=== PATIENT | male | born 1940 | race Caucasian/White ===

== ENCOUNTER 2017-01-29 16:59 | Emergency (ER) | payer MEDICARE ==
--- NOTE | 2017-01-29 17:52 | C.PDOC ---
History Of Present Illness <TanikayukiStaceyEwa C - Last Filed: 01/29/17 19:01> <Mac Pulliam - Last Filed: 01/29/17 20:25> 76 yr old male presents to the ER with complaints of feeling dizzy for the past 3 days when he was at mosque. Patient also reports of feeling SOB, tired and shivering today. Patient denies recent illness, chest pain, vision changes, nausea, vomiting, weakness or numbness. (Ewa Avina) History Per: Patient History/Exam Limitations: no limitations Onset/Duration Of Symptoms: Days (3) Current Symptoms Are (Timing): Still Present <RuthleonorStaceyEwa C - Last Filed: 01/29/17 19:01> <Mac Pulliam - Last Filed: 01/29/17 20:25> Time Seen by Provider: 01/29/17 17:30 Chief Complaint (Nursing): Dizziness/Lightheaded Past Medical History Reviewed: Historical Data, Nursing Documentation, Vital Signs - Medical History PMH: Cardia Arrhythmia, HTN, Hypercholesterolemia Family History: States: No Known Family Hx - Social History Hx Alcohol Use: Yes (''occassionally'') Hx Substance Use: No - Immunization History Hx Tetanus Toxoid Vaccination: No Hx Influenza Vaccination: Yes (2015) Hx Pneumococcal Vaccination: Yes (2015) <TanikayukiStaceyEwa C - Last Filed: 01/29/17 19:01> Review Of Systems Except As Marked, All Systems Reviewed And Found Negative. Constitutional: Positive for: Other ((+) Tired. Shivering ). Negative for: Fever Eyes: Negative for: Vision Change Cardiovascular: Negative for: Chest Pain Respiratory: Positive for: Shortness of Breath Gastrointestinal: Negative for: Nausea, Vomiting Neurological: Negative for: Weakness, Numbness <Ewa Avina - Last Filed: 01/29/17 19:01> Physical Exam - Physical Exam Appears: Non-toxic, No Acute Distress, Other ((+) Diaphoretic) Skin: Warm, Dry Head: Atraumatic, Normacephalic Eye(s): bilateral: Normal Inspection, PERRL, EOMI Oral Mucosa: Moist Neck: Normal ROM, Supple Chest: Symmetrical, No Tenderness Cardiovascular: Rhythm Regular, No Friction Rub, No Murmur Respiratory: Normal Breath Sounds, No Rales, No Rhonchi, No Wheezing Extremity: Normal ROM, No Swelling Pulses: Left Dorsalis Pedis: Normal, Right Dorsalis Pedis: Normal Neurological/Psych: Oriented x3, Normal Speech, Normal Motor <Ewa Avina - Last Filed: 01/29/17 19:01> ED Course And Treatment - Laboratory Results Result Diagrams: 01/29/17 18:30 ECG: Interpreted By Me, Viewed By Me ECG Rhythm: Sinus Rhythm ECG Interpretation: Normal Rate From EC (BPM) O2 Sat by Pulse Oximetry: 95 (RA ) Pulse Ox Interpretation: Normal - Radiology CXR: Viewed By Me, Read By Radiologist CXR Interpretation: Yes: No Acute Disease <Ewa Avina - Last Filed: 01/29/17 19:01> - Laboratory Results Result Diagrams: 01/29/17 18:30 01/29/17 18:30 <Mac Pulliam - Last Filed: 01/29/17 20:25> Medical Decision Making <Ewa Avina - Last Filed: 01/29/17 19:01> <Mac Pulliam - Last Filed: 01/29/17 20:25> Medical Decision Making: PLAN: * CXR * EKG * Troponin * CBC * CMP Patient states that he feels anxious and gets anxious if he does not take his medications. (wEa Avina) Upon provider reevaluation patient is feeling better, is medically stable, and requires no further treatment in the ED at this time. Patient will be discharged home with Rx for ativan . Counseling was provided and all questions were answered regarding diagnosis and need for follow up with Dr burnett. There is agreement to discharge plan. Return if symptoms persist or worsen. (Mac Pulliam) Disposition - Disposition Disposition Time: 19:02 <Ewa Avina - Last Filed: 01/29/17 19:01> Counseled Patient/Family Regarding: Studies Performed, Diagnosis, Need For Followup, Rx Given <Mac Pulliam - Last Filed: 01/29/17 20:25> - Disposition Referrals: Johann Burnett MD [Staff Provider] - Disposition: HOME/ ROUTINE Condition: FAIR Additional Instructions: Please return if symptoms recur Prescriptions: Lorazepam [Ativan] 0.5 mg PO TID PRN #15 tab PRN Reason: Anxiety Instructions: Anxiety (ED) - Clinical Impression Clinical Impression: Anxiety - PA / [employer] / Resident Statement MD/DO has reviewed & agrees with the documentation as recorded. - Scribe Statement The provider has reviewed the documentation as recorded by the Scribe <Ewa Avina - Last Filed: 01/29/17 19:01> <Mac Pulliam - Last Filed: 01/29/17 20:25> - Scribe Statement Alyssa Hendrix All medical record entries made by the Scribe were at my direction and personally dictated by me. I have reviewed the chart and agree that the record accurately reflects my personal performance of the history, physical exam, medical decision making, and the department course for this patient. I have also personally directed, reviewed, and agree with the discharge instructions and disposition. (Ewa Avina) Physician Patient Turnover Patient Signed Over To: Mac Pulliam Handoff Comments: Pending lab work and disposition <Ewa Avina - Last Filed: 01/29/17 19:01>
[2017-01-29] MEDS ORDERED: Nitroglycerin 2% Ointment Foilpak UD TOP STA (18:08)
[2017-01-29 18:34] VITALS: PULSE 87
[2017-01-29 18:35] LABS: BASO % 0.6 % (0.0-2.0); EOS % 0.4 % (0.0-4.0); HEMATOCRIT 42.1 % (35.0-51.0); LYMPH # 1.3 K/uL (1.0-4.3); LYMPH % 16.3 % (20.0-40.0); MEAN CELL VOLUME 89.5 fL (80.0-94.0); MEAN CORPUSCULAR HGB CONC 33.6 g/dL (33.0-37.0); MEAN PLATELET VOLUME 6.7 fL (7.2-11.7); MONO # 0.5 K/uL (0.0-0.8); MONO % 6.9 % (0.0-10.0); RED CELL DISTRIBUTION WIDTH 13.3 % (11.5-14.5); WHITE BLOOD COUNT 7.9 K/uL (4.8-10.8)
--- NOTE | 2017-01-29 18:37 | RAD ---
PROCEDURE: CHEST RADIOGRAPH, 1 VIEW HISTORY: chest pain COMPARISON: None available. FINDINGS: LUNGS: Clear. PLEURA: No pneumothorax or pleural fluid seen. CARDIOVASCULAR: Normal. OSSEOUS STRUCTURES: No significant abnormalities. VISUALIZED UPPER ABDOMEN: Normal. OTHER FINDINGS: None. IMPRESSION: No active disease.
[2017-01-29 19:01] LABS: CHLORIDE 98 mmol/L (98-107); SODIUM 138 mmol/L (132-148)
[2017-01-29 19:04] LABS: ALB/GLOB RATIO 1.1 (1.0-2.1); ALKALINE PHOSPHATASE 92 U/L (38-126); ALT/SGPT 23 U/L (21-72); AST/SGOT 35 U/L (17-59); BILIRUBIN,TOTAL 0.7 mg/dL (0.2-1.3); BLOOD UREA NITROGEN 22 mg/dL (9-20); CALCIUM 9.5 mg/dl (8.6-10.4); CARBON DIOXIDE 27 mmol/L (22-30); GFR AFRICAN-AMERICAN 55; GLUCOSE,RANDOM 130 mg/dL (75-110); TOTAL PROTEIN 8.8 g/dL (6.3-8.3)
[2017-01-29 19:19] LABS: POTASSIUM 3.5 mmol/L (3.6-5.2)
[2017-01-29 20:37] VITALS: BP 144/71; RESP 22; TEMP 98.2; O2SAT 96
--- NOTE | 2017-01-30 11:30 | CARD ---
APPROVED REPORT EKG Measurement Heart [id number] <Conclusion> Normal sinus rhythm Possible Left atrial enlargement Borderline ECG
== END 2017-01-29 20:38 | disposition home or self-care (01) ==
LOC: MERGE 16:59 → C.ER 16:59
DX: F41.9 Anxiety disorder, unspecified (principal); I10 Essential (primary) hypertension; E78.00 Pure hypercholesterolemia, unspecified; I49.9 Cardiac arrhythmia, unspecified; Z87.891 Personal history of nicotine dependence

== ENCOUNTER 2018-01-13 07:07 | Day surgery (SDC) | payer MEDICARE, OTHER ==
[2018-01-08 10:28] VITALS: BMI 22.4
[2018-01-13] MEDS ORDERED: Lidocaine 2% Jelly (Uro-Jet) ONE (08:15)
[2018-01-13] MEDS ORDERED: cefTRIAXone IV 1 gm in Dextros 50 ML IVPB ONE (08:15)
[2018-01-13] MEDS ORDERED: Gentamicin 160 MG in Sodium Chloride 0.9% 100 ML IVPB ONE (08:19)
[2018-01-13] MEDS ORDERED: Midazolam 2 MG/2 ML VIAL ONE (08:38)
[2018-01-13] MEDS ORDERED: Propofol 10 mg/ml Inj (20 ML) ONE (08:38)
[2018-01-13] MEDS ORDERED: Lactated Ringer's 1,000 ML IV ONE (09:12)
[2018-01-13 11:18] VITALS: BP 123/59; PULSE 73; RESP 15; TEMP 97.7; O2SAT 97
--- NOTE | 2018-01-13 20:41 | OP ---
PROCEDURE DATE: 01/13/2018 PREOPERATIVE DIAGNOSIS: Elevated prostate specific antigen of 23.04. POSTOPERATIVE DIAGNOSIS: Elevated prostate specific antigen of 23.04. PROCEDURE: Transrectal ultrasound, diagnostic, transrectal ultrasound guided prostatic biopsy. SURGEON: Ryan Lewis MD. DESCRIPTION OF PROCEDURE: The patient is interviewed in the holding area and confirmed that he is not taking any aspirin or NSAIDs for over 10 days. He was told that in the unlikely event he gets high fever or chills, he is to call my office immediately and/or go to the emergency room. The patient was brought into the operating room, placed in the lithotomy position, prepped and draped in the usual fashion. He was medicated with 1 gm of Rocephin IV piggyback and then gentamicin 160 mg IV piggyback. The rectum was cleansed with Betadine. He was placed under anesthesia. Transrectal ultrasound diagnostically was performed that revealed a 37.7 cm prostate. There were multiple areas of calcification noted but no hypoechoic lesions were seen. It should be mentioned that digital rectal exam had been performed prior to introduction of the transducer and the prostate was smooth and symmetrical without any obvious nodules and there were no areas of nodularity. We now proceeded with prostatic biopsy. The prostate was divided into six sextants and two cores were taken from each sextant. Afterwards, the transducer was maintained in place for 5 minutes to promote hemostasis and upon removal no bleeding was noted. The patient tolerated the procedure well. Ryan Lewis MD
== END 2018-01-13 11:33 | disposition home or self-care (01) ==
LOC: C.SDS 07:07 → C.OPSURG 07:07 → C.SDS 11:33
PROVIDERS: ATTEND Urology
DX: R97.20 Elevated prostate specific antigen [PSA] (principal)
CPT/HCPCS: 55700; 82948; 88305; 88342; J0696; J1580; J7120

== ENCOUNTER 2018-08-17 06:52 | Inpatient (IN) | payer OTHER ==
[2018-08-17 06:52] VITALS: BMI 22.4
[2018-08-17 07:36] LABS: ABG ALLEN TEST POS; ARTERIAL BLOOD GAS HCO3 19.1 mmol/L (21-28); ARTERIAL BLOOD GAS O2 SAT 98.9 % (95-98); ARTERIAL BLOOD GAS PCO2 27 mm/Hg (35-45); ARTERIAL BLOOD GAS PH 7.38 (7.35-7.45); ARTERIAL BLOOD GAS PO2 320 mm/Hg (80-100); ARTERIAL BLOOD GAS TCO2 16.8 mmol/L (22-28)
[2018-08-17 07:41] LABS: BASO % 0.2 % (0.0-2.0); EOS % 0.1 % (0.0-4.0); LYMPH # 0.5 K/uL (1.0-4.3); LYMPH % 6.2 % (20.0-40.0); MEAN CORPUSCULAR HEMOGLOBIN 31.5 pg (27.0-31.0); MEAN CORPUSCULAR HGB CONC 32.8 g/dL (33.0-37.0); MEAN PLATELET VOLUME 8.9 fL (7.2-11.7); MONO # 0.4 K/uL (0.0-0.8); MONO % 4.7 % (0.0-10.0); NEUT # 7.4 K/uL (1.8-7.0); NEUT % 88.8 % (50.0-75.0); RBC 3.41 Mil/uL (4.40-5.90); RED CELL DISTRIBUTION WIDTH 14.3 % (11.5-14.5); WHITE BLOOD COUNT 8.3 K/uL (4.8-10.8)
[2018-08-17 07:44] LABS: HEMOGLOBIN 10.8 g/dL (12.0-18.0); MEAN CELL VOLUME 96.3 fL (80.0-94.0); PLATELET COUNT 162 K/uL (130-400)
[2018-08-17 07:55] LABS: INR 0.9; PROTHROMBIN TIME 10.2 SECONDS (9.7-12.2)
--- NOTE | 2018-08-17 07:55 | C.PDOC ---
History Of Present Illness 77 year old male with a medical history of prostate cancer and renal insufficiency presents to the ED via EMS with a chief complaint of shortness of breath and cough for 1 day. The patient reports his last radiation therapy was August 11, 5 days ago he developed cough and chills for which he took Mucinex. Today he went into respiratory distress, EMS administered Duoneb prior to arrival. The patient denies chest pain, abdominal pain, and any other associated symptoms. Chief Complaint (Nursing): Respiratory Distress History Per: Patient, EMS History/Exam Limitations: no limitations Onset/Duration Of Symptoms: Days (x5) Current Symptoms Are (Timing): Still Present Associated Symptoms: Chills Recent travel outside of the [place]: No Past Medical History Reviewed: Historical Data, Nursing Documentation, Vital Signs Vital Signs: Last Vital Signs Temp 98.3 F 08/17/18 06:59 Pulse 122 H 08/17/18 07:14 Resp 45 H 08/17/18 07:08 BP 151/68 H 08/17/18 06:59 Pulse Ox 98 08/17/18 07:08 - Medical History PMH: Arthritis, Cardia Arrhythmia, HTN, Hypercholesterolemia, Chronic Kidney Disease (left kidney 50 percent functioning only per pt) Family History: States: Unknown Family Hx - Social History Hx Alcohol Use: Yes (''occassionally'') Hx Substance Use: No - Immunization History Hx Tetanus Toxoid Vaccination: No Hx Influenza Vaccination: Yes (2016) Hx Pneumococcal Vaccination: Yes (2016) Review Of Systems Except As Marked, All Systems Reviewed And Found Negative. Constitutional: Positive for: Chills. Negative for: Fever Respiratory: Positive for: Cough, Shortness of Breath Physical Exam - Physical Exam Appears: Other (moderate distress. ) Skin: Warm, Dry Head: Atraumatic, Normacephalic, Other (facial edema. ) Eye(s): bilateral: Normal Inspection Oral Mucosa: Moist Neck: Normal ROM, Supple Chest: Symmetrical, No Deformity Cardiovascular: Rhythm Regular, No Murmur Respiratory: Normal Breath Sounds, Rales (bilaterally. ), No Rhonchi, No Wheezing, Other ((+) tachycardic. (+) moderate respiratory distress.) Gastrointestinal/Abdominal: Normal Exam, Soft, No Tenderness Extremity: Bilateral: Atraumatic, Normal Color And Temperature, Normal ROM Neurological/Psych: Oriented x3, Normal Speech, Normal Cognition ED Course And Treatment - Laboratory Results Result Diagrams: 08/17/18 07:39 08/17/18 07:39 Lab Results: Puncture Site Rr 08/17/18 07:34 pCO2 27 mm/Hg (35-45) L 08/17/18 07:34 pO2 320 mm/Hg (80-100) H 08/17/18 07:34 HCO3 19.1 mmol/L (21-28) L 08/17/18 07:34 ABG pH 7.38 (7.35-7.45) 08/17/18 07:34 ABG Total CO2 16.8 mmol/L (22-28) L 08/17/18 07:34 ABG O2 Saturation 98.9 % (95-98) H 08/17/18 07:34 ABG Base Excess -7.6 mmol/L (-2.0-3.0) L 08/17/18 07:34 Ismael Test Pos 08/17/18 07:34 ABG Potassium 3.2 mmol/L (3.6-5.2) L 08/17/18 07:34 A-a O2 Difference 359.0 mm/Hg 08/17/18 07:34 Respiratory Index 1.1 08/17/18 07:34 Sodium 135.0 mmol/l (132-148) 08/17/18 07:34 Chloride 106.0 mmol/L (98-107) 08/17/18 07:34 Glucose 188 mg/dl (75-110) H 08/17/18 07:34 Lactate 1.8 mmol/L (0.7-2.1) 08/17/18 07:34 FiO2 100.0 % 08/17/18 07:34 Inspiratory BiPAP 12 08/17/18 07:34 Expiratory BiPAP 6 08/17/18 07:34 ECG Rhythm: Sinus Tachycardia Interpretation Of ECG: no ST elevation. QT waves normal. Rate From EC O2 Sat by Pulse Oximetry: 98 (RA) Pulse Ox Interpretation: Normal - Other Rad CXR X-Ray: Viewed By Me, Read By Radiologist Interpretation: FINDINGS: LUNGS: The lungs are hyperinflated and there is peribronchial thickening with chronic changes in both lungs. There is perihilar haziness, worse on the left. There is moderate pulmonary venous congestion. PLEURA: Suspect small effusions. No pneumothorax. CARDIOVASCULAR: Mild cardiomegaly. No aortic atherosclerotic calcifications present. OSSEOUS STRUCTURES: Within normal limits for the patient's age. VISUALIZED UPPER ABDOMEN: Normal. OTHER FINDINGS: None. IMPRESSION: Findings may represent mild congestive heart failure with presumable perihilar pulmonary edema, worse on the left in the appropriate clinical setting. Clinical follow-up is advised. Critical Care Time - Critical Care Note Total Time (in mins): 45 Documented critical care: time excludes all time spent performing seperately billable procedures. Medical Decision Making Medical Decision Making: Initial Plan: -EKG -Blood -CXR -Blood culture -Urine culture -Urinalysis -BiPAP Ventilation Progress/Update: -Given Lasix. -Influenza test (-) -Bladder scan to determine urine output. -Jasso catheter insertion ordered. -Jasso inserted by nurse, 1000cc retained, yellow cloudy urine output. Disposition Discussed With : Wily Liao Doctor Will See Patient In The: Hospital Counseled Patient/Family Regarding: Studies Performed, Diagnosis - Disposition Disposition: HOSPITALIZED Disposition Time: 08:34 Condition: GUARDED - Clinical Impression Clinical Impression: Pulmonary edema, Respiratory failure, Acute renal failure, Urinary retention - Scribe Statement The provider has reviewed the documentation as recorded by the Scribe (Alma Lance) Provider Attestation: All medical record entries made by the Scribe were at my direction and personally dictated by me. I have reviewed the chart and agree that the record accurately reflects my personal performance of the history, physical exam, medical decision making, and the department course for this patient. I have also personally directed, reviewed, and agree with the discharge instructions and disposition.
[2018-08-17 07:56] LABS: ALB/GLOB RATIO 1.3 (1.0-2.1); ALBUMIN 4.2 g/dL (3.5-5.0); CALCIUM 8.3 mg/dl (8.6-10.4)
[2018-08-17 08:07] LABS: TROPONIN I 0.119 ng/mL (0.00-0.120)
[2018-08-17 08:16] LABS: BANDS 10 % (0-2); LYMPHOCYTE 5 % (20-40); MONOCYTE 10 % (0-10); NEUTROPHIL 75 % (50-75); PLATELET ESTIMATE NORMAL (NORMAL); TOTAL CELLS COUNTED 100
[2018-08-17] MEDS ORDERED: Sodium Chloride 0.9% 1,000 ML IV SCH ×2 (08:30→14:00)
[2018-08-17] MEDS ORDERED: Sodium Chloride 0.9% 1,000 ML ONE ×2 (08:44→15:08)
[2018-08-17 09:19] LABS: URINE BACTERIA MANY (<OCC); URINE BILIRUBIN NEGATIVE (NEGATIVE); URINE BLOOD 2+ (NEGATIVE); URINE CLARITY Turbid (Clear); URINE COLOR Yellow (YELLOW); URINE GLUCOSE (UA) NORMAL (Normal); URINE LEUKOCYTE ESTERASE 3+ Leu/uL (Negative); URINE PROTEIN 1+ mg/dL (NEGATIVE); URINE UROBILINOGEN NORMAL mg/dL (0.2-1.0); WBC CLUMPS MANY /hpf
--- NOTE | 2018-08-17 10:12 | RAD ---
Date of service: 08/17/2018 HISTORY: Sepsis Patient COMPARISON: 01/08/2018. FINDINGS: LUNGS: The lungs are hyperinflated and there is peribronchial thickening with chronic changes in both lungs. There is perihilar haziness, worse on the left. There is moderate pulmonary venous congestion. PLEURA: Suspect small effusions. No pneumothorax. CARDIOVASCULAR: Mild cardiomegaly. No aortic atherosclerotic calcifications present. OSSEOUS STRUCTURES: Within normal limits for the patient's age. VISUALIZED UPPER ABDOMEN: Normal. OTHER FINDINGS: None. IMPRESSION: Findings may represent mild congestive heart failure with presumable perihilar pulmonary edema, worse on the left in the appropriate clinical setting. Clinical follow-up is advised.
[2018-08-17 12:06] LABS: ABG ALLEN TEST POS; ARTERIAL BLOOD GAS HCO3 21.6 mmol/L (21-28); ARTERIAL BLOOD GAS O2 SAT 98.4 % (95-98); ARTERIAL BLOOD GAS PCO2 27 mm/Hg (35-45); ARTERIAL BLOOD GAS PH 7.44 (7.35-7.45); ARTERIAL BLOOD GAS PO2 400 mm/Hg (80-100); ARTERIAL BLOOD GAS TCO2 19.1 mmol/L (22-28)
--- NOTE | 2018-08-17 12:45 | CP.PCM.CON ---
History of Present Illness - History of Present Illness History of Present Illness: 77 y/o male with pxm of HTN, BPH, chronic heart failure presents to [facility] with c/o fatigue, poor urine output and malaise. Patient had lopez placment and urine output was >700 ml. Patient developed fevers post lopez placement. Patient has h/o poor urine output for last 2 days, h/o BPH. Patient developed transient BBP with increas in QTC before zofran inufusion. h/o smoking allergiec to asa Pmx: HTN, BPH -Psurg hx: -allergies: Asa Review of Systems - Review of Systems All systems: reviewed and no additional remarkable complaints except Review of Systems: as per HPI Past Patient History - Past Medical History & Family History Past Medical History?: Yes - Past Social History Smoking Status: Former Smoker - CARDIAC Hx Cardia Arrhythmia: Yes Hx Hypercholesterolemia: Yes Hx Hypertension: Yes - NEUROLOGICAL Hx Neurological Disorder: Yes (SEE COMMENT) Other/Comment: NEUROPATHY - HEENT Hx HEENT Problems: Yes (seasonal allergies) - RENAL Hx Chronic Kidney Disease: Yes (left kidney 50 percent functioning only per pt) - ENDOCRINE/METABOLIC Hx Endocrine Disorders: Yes Hx Diabetes Mellitus Type 2: Yes - HEMATOLOGICAL/ONCOLOGICAL Hx Cancer: Yes (prostate CA) - MUSCULOSKELETAL/RHEUMATOLOGICAL Hx Arthritis: Yes - GASTROINTESTINAL Hx Gastrointestinal Disorders: Yes (constipation) - GENITOURINARY/GYNECOLOGICAL Hx Genitourinary Disorders: Yes Hx Prostate Cancer: Yes Hx Prostate Problems: Yes - PSYCHIATRIC Hx Substance Use: No - SURGICAL HISTORY Hx Surgeries: No - ANESTHESIA Hx Anesthesia: No Meds Allergies/Adverse Reactions: Allergies Allergy/AdvReac Type Severity Reaction Status Date / Time aspirin Allergy RASH Verified 01/29/17 17:21 - Medications Medications: Current Medications Clopidogrel Bisulfate (Plavix) 75 mg PO DAILY [facility] Diltiazem HCl (Cardizem Cd) 180 mg PO DAILY [facility] Sodium Chloride (Sodium Chloride 0.9%) 1,000 mls @ 100 mls/hr IV .Q10H [facility] Last Admin: 08/17/18 08:47 Dose: 100 mls/hr Ceftriaxone Sodium 1 gm/ (Sodium Chloride) 100 mls @ 100 mls/hr IVPB DAILY [facility]; Protocol Stop: 08/22/18 10:59 Tamsulosin HCl (Flomax) 0.4 mg PO DAILY [facility] Physical Exam - Head Exam Head Exam: ATRAUMATIC, NORMAL INSPECTION, NORMOCEPHALIC - Eye Exam Eye Exam: EOMI Pupil Exam: NORMAL ACCOMODATION - ENT Exam ENT Exam: Mucous Membranes Moist - Respiratory Exam Respiratory Exam: Clear to Auscultation Bilateral, NORMAL BREATHING PATTERN. absent: Rales, Rhonchi, Wheezes, Respiratory Distress, Stridor - Cardiovascular Exam Cardiovascular Exam: Tachycardia, REGULAR RHYTHM, +S1, +S2, Systolic Murmur - GI/Abdominal Exam GI & Abdominal Exam: Normal Bowel Sounds, Soft. absent: Firm, Guarding, Hernia - Extremities Exam Extremities exam: Positive for: pedal edema - Neurological Exam Neurological exam: Alert, CN II-XII Intact, Oriented x3 - Skin Skin Exam: Normal Color, Warm Results - Vital Signs Recent Vital Signs: Last Vital Signs Temp 102.0 F H 08/17/18 11:34 Pulse 102 H 08/17/18 12:32 Resp 20 08/17/18 12:32 BP 119/58 L 08/17/18 12:32 Pulse Ox 98 08/17/18 12:32 - Labs Result Diagrams: 08/17/18 07:39 08/17/18 07:39 Labs: Laboratory Results - last 24 hr 08/17/18 08/17/18 08/17/18 07:26 07:34 07:39 WBC 8.3 RBC 3.41 L Hgb 10.8 L D Hct 32.8 L MCV 96.3 H D MCH 31.5 H MCHC 32.8 L RDW 14.3 Plt Count 162 D MPV 8.9 Neut % (Auto) 88.8 H Lymph % (Auto) 6.2 L [place] % (Auto) 4.7 Eos % (Auto) 0.1 Baso % (Auto) 0.2 Neut # (Auto) 7.4 H Lymph # (Auto) 0.5 L [place] # (Auto) 0.4 Eos # (Auto) 0.0 Baso # (Auto) 0.0 Neutrophils % (Manual) 75 Band Neutrophils % 10 H Lymphocytes % (Manual) 5 L Monocytes % (Manual) 10 Platelet Estimate Normal RBC Morphology Normal PT INR APTT Puncture Site Rr pCO2 27 L pO2 320 H HCO3 19.1 L ABG pH 7.38 ABG Total CO2 16.8 L ABG O2 Saturation 98.9 H ABG Base Excess -7.6 L Ismael Test Pos ABG Potassium 3.2 L A-a O2 Difference 359.0 Respiratory Index 1.1 Sodium 135.0 Chloride 106.0 Glucose 188 H Lactate 1.8 FiO2 100.0 Inspiratory BiPAP 12 Expiratory BiPAP 6 Potassium Carbon Dioxide Anion Gap BUN Creatinine Est GFR ( Amer) Est GFR (Non-Af Amer) Random Glucose Calcium Phosphorus Magnesium Total Bilirubin AST ALT Alkaline Phosphatase Troponin I NT-Pro-B Natriuret Pep Total Protein Albumin Globulin Albumin/Globulin Ratio Procalcitonin Arterial Blood Potassium 3.2 L Urine Color Urine Clarity Urine pH Ur Specific [place] Urine Protein Urine Glucose (UA) Urine Ketones Urine Blood Urine Nitrate Urine Bilirubin Urine Urobilinogen Ur Leukocyte Esterase Urine WBC (Auto) Urine RBC (Auto) Urine WBC Clumps (Auto) Urine Bacteria Influenza Typ A,B (EIA) Negative for flu a/b 08/17/18 08/17/18 08/17/18 07:39 07:39 08:18 WBC RBC Hgb Hct MCV MCH MCHC RDW Plt Count MPV Neut % (Auto) Lymph % (Auto) [place] % (Auto) Eos % (Auto) Baso % (Auto) Neut # (Auto) Lymph # (Auto) [place] # (Auto) Eos # (Auto) Baso # (Auto) Neutrophils % (Manual) Band Neutrophils % Lymphocytes % (Manual) Monocytes % (Manual) Platelet Estimate RBC Morphology PT 10.2 INR 0.9 APTT 30 Puncture Site pCO2 pO2 HCO3 ABG pH ABG Total CO2 ABG O2 Saturation ABG Base Excess Ismael Test ABG Potassium A-a O2 Difference Respiratory Index Sodium 134 Chloride 100 Glucose Lactate FiO2 Inspiratory BiPAP Expiratory BiPAP Potassium 3.9 Carbon Dioxide 18 L Anion Gap 20 BUN 92 H Creatinine 5.9 H Est GFR ( Amer) 11 Est GFR (Non-Af Amer) 9 Random Glucose 191 H D Calcium 8.3 L Phosphorus 4.8 H Magnesium 2.1 Total Bilirubin 0.6 AST 51 ALT 28 Alkaline Phosphatase 87 Troponin I 0.1190 NT-Pro-B Natriuret Pep 69861 H Total Protein 7.4 Albumin 4.2 Globulin 3.2 Albumin/Globulin Ratio 1.3 Procalcitonin 114.00 H Arterial Blood Potassium Urine Color Urine Clarity Urine pH Ur Specific [place] Urine Protein Urine Glucose (UA) Urine Ketones Urine Blood Urine Nitrate Urine Bilirubin Urine Urobilinogen Ur Leukocyte Esterase Urine WBC (Auto) Urine RBC (Auto) Urine WBC Clumps (Auto) Urine Bacteria Influenza Typ A,B (EIA) 08/17/18 08/17/18 08:50 12:02 WBC RBC Hgb Hct MCV MCH MCHC RDW Plt Count MPV Neut % (Auto) Lymph % (Auto) [place] % (Auto) Eos % (Auto) Baso % (Auto) Neut # (Auto) Lymph # (Auto) [place] # (Auto) Eos # (Auto) Baso # (Auto) Neutrophils % (Manual) Band Neutrophils % Lymphocytes % (Manual) Monocytes % (Manual) Platelet Estimate RBC Morphology PT INR APTT Puncture Site Rr pCO2 27 L pO2 400 H HCO3 21.6 ABG pH 7.44 ABG Total CO2 19.1 L ABG O2 Saturation 98.4 H ABG Base Excess -4.4 L Ismael Test Pos ABG Potassium 3.2 L A-a O2 Difference 279.0 Respiratory Index 0.7 Sodium 134.0 Chloride 105.0 Glucose 210 H Lactate 1.4 FiO2 100.0 Inspiratory BiPAP 12 Expiratory BiPAP 6 Potassium Carbon Dioxide Anion Gap BUN Creatinine Est GFR ( Amer) Est GFR (Non-Af Amer) Random Glucose Calcium Phosphorus Magnesium Total Bilirubin AST ALT Alkaline Phosphatase Troponin I NT-Pro-B Natriuret Pep Total Protein Albumin Globulin Albumin/Globulin Ratio Procalcitonin Arterial Blood Potassium 3.2 L Urine Color Yellow Urine Clarity Turbid Urine pH 5.0 Ur Specific [place] 1.010 Urine Protein 1+ H Urine Glucose (UA) Normal Urine Ketones Negative Urine Blood 2+ H Urine Nitrate Negative Urine Bilirubin Negative Urine Urobilinogen Normal Ur Leukocyte Esterase 3+ H Urine WBC (Auto) 1423 H Urine RBC (Auto) 13 H Urine WBC Clumps (Auto) Many H Urine Bacteria Many H Influenza Typ A,B (EIA) Assessment & Plan - Assessment and Plan (Free Text) Assessment: -Sepsis: source likely prostate/UTI, contine ceftriaxone, marquez culture, continue sepsis protocol, patient will not benefit from 30 ml/kg of IV bolus, gently hydration as patient at risk of heart failure, serial lactic -Heart failure: continue tele monitoring, continue home AV dayna yajaira at risk of CAD, start asa, statin, not a candidate for LAN 2nd renal failure, cardiology consult -ZAINA: liekly obstructive, avoid neprhotoxic drugs, chek US abdomen, renal consult -dvt ppx heparin SQ -PUD ppx protonix -Patient has ZAINA, heart faliure and dyspnea 2nd heart failure -Patient will benefit from ICU level care. d/w ER nurse. - Date & Time Date: 08/17/18 Time: 12:49
[2018-08-17] MEDS: diltiaZEM 180 mg/24 Hours CD Cap PO SCH (13:40)
[2018-08-17] MEDS ORDERED: Magnesium Sulfate 1 gm in D5W 1 GM/100 ML BAG IVPB ONE (13:48)
[2018-08-17 16:02] LABS: CK-MB 4.51 ng/mL (0.0-3.38); TROPONIN I 0.123 ng/mL (0.00-0.120)
[2018-08-17] MEDS: Sodium Chloride 0.9% 1,000 ML IV SCH (17:56)
[2018-08-17] MEDS: Piperacill/Tazo 2.25gm in Dex 2.25 GM/50 ML BAG IVPB SCH ×2 (18:34→23:06)
[2018-08-17] MEDS: Albuterol-Ipratrop 3 mg / 0.5 (3 ml) UD INH SCH (20:33)
--- NOTE | 2018-08-17 22:24 | CP.PCM.HP ---
Past Patient History - Past Medical History & Family History Past Medical History?: Yes - Past Social History Smoking Status: Former Smoker - CARDIAC Hx Cardia Arrhythmia: Yes Hx Hypercholesterolemia: Yes Hx Hypertension: Yes - NEUROLOGICAL Hx Neurological Disorder: Yes (SEE COMMENT) Other/Comment: NEUROPATHY - HEENT Hx HEENT Problems: Yes (seasonal allergies) - RENAL Hx Chronic Kidney Disease: Yes (left kidney 50 percent functioning only per pt) - ENDOCRINE/METABOLIC Hx Endocrine Disorders: Yes Hx Diabetes Mellitus Type 2: Yes - HEMATOLOGICAL/ONCOLOGICAL Hx Cancer: Yes (prostate CA) - MUSCULOSKELETAL/RHEUMATOLOGICAL Hx Arthritis: Yes - GASTROINTESTINAL Hx Gastrointestinal Disorders: Yes (constipation) - GENITOURINARY/GYNECOLOGICAL Hx Genitourinary Disorders: Yes Hx Prostate Cancer: Yes Hx Prostate Problems: Yes - PSYCHIATRIC Hx Substance Use: No - SURGICAL HISTORY Hx Surgeries: No - ANESTHESIA Hx Anesthesia: No Meds Allergies/Adverse Reactions: Allergies Allergy/AdvReac Type Severity Reaction Status Date / Time aspirin Allergy RASH Verified 01/29/17 17:21 Results - Vital Signs Recent Vital Signs: Last Vital Signs Temp 99 F 08/17/18 20:00 Pulse 92 H 08/17/18 22:00 Resp 30 H 08/17/18 22:00 BP 120/52 L 08/17/18 21:51 Pulse Ox 97 08/17/18 22:00 - Labs Result Diagrams: 08/17/18 07:39 08/17/18 07:39 Labs: Laboratory Results - last 24 hr 08/17/18 08/17/18 08/17/18 07:26 07:34 07:39 WBC 8.3 RBC 3.41 L Hgb 10.8 L D Hct 32.8 L MCV 96.3 H D MCH 31.5 H MCHC 32.8 L RDW 14.3 Plt Count 162 D MPV 8.9 Neut % (Auto) 88.8 H Lymph % (Auto) 6.2 L [place] % (Auto) 4.7 Eos % (Auto) 0.1 Baso % (Auto) 0.2 Neut # (Auto) 7.4 H Lymph # (Auto) 0.5 L [place] # (Auto) 0.4 Eos # (Auto) 0.0 Baso # (Auto) 0.0 Neutrophils % (Manual) 75 Band Neutrophils % 10 H Lymphocytes % (Manual) 5 L Monocytes % (Manual) 10 Platelet Estimate Normal RBC Morphology Normal PT INR APTT Puncture Site Rr pCO2 27 L pO2 320 H HCO3 19.1 L ABG pH 7.38 ABG Total CO2 16.8 L ABG O2 Saturation 98.9 H ABG Base Excess -7.6 L Ismael Test Pos ABG Potassium 3.2 L A-a O2 Difference 359.0 Respiratory Index 1.1 Sodium 135.0 Chloride 106.0 Glucose 188 H Lactate 1.8 FiO2 100.0 Inspiratory BiPAP 12 Expiratory BiPAP 6 Potassium Carbon Dioxide Anion Gap BUN Creatinine Est GFR ( Amer) Est GFR (Non-Af Amer) Random Glucose Calcium Phosphorus Magnesium Total Bilirubin AST ALT Alkaline Phosphatase Total Creatine Kinase CK-MB (Mass) Troponin I NT-Pro-B Natriuret Pep Total Protein Albumin Globulin Albumin/Globulin Ratio Procalcitonin Arterial Blood Potassium 3.2 L Urine Color Urine Clarity Urine pH Ur Specific [place] Urine Protein Urine Glucose (UA) Urine Ketones Urine Blood Urine Nitrate Urine Bilirubin Urine Urobilinogen Ur Leukocyte Esterase Urine WBC (Auto) Urine RBC (Auto) Urine WBC Clumps (Auto) Urine Bacteria Influenza Typ A,B (EIA) Negative for flu a/b 08/17/18 08/17/18 08/17/18 07:39 07:39 08:18 WBC RBC Hgb Hct MCV MCH MCHC RDW Plt Count MPV Neut % (Auto) Lymph % (Auto) [place] % (Auto) Eos % (Auto) Baso % (Auto) Neut # (Auto) Lymph # (Auto) [place] # (Auto) Eos # (Auto) Baso # (Auto) Neutrophils % (Manual) Band Neutrophils % Lymphocytes % (Manual) Monocytes % (Manual) Platelet Estimate RBC Morphology PT 10.2 INR 0.9 APTT 30 Puncture Site pCO2 pO2 HCO3 ABG pH ABG Total CO2 ABG O2 Saturation ABG Base Excess Ismael Test ABG Potassium A-a O2 Difference Respiratory Index Sodium 134 Chloride 100 Glucose Lactate FiO2 Inspiratory BiPAP Expiratory BiPAP Potassium 3.9 Carbon Dioxide 18 L Anion Gap 20 BUN 92 H Creatinine 5.9 H Est GFR ( Amer) 11 Est GFR (Non-Af Amer) 9 Random Glucose 191 H D Calcium 8.3 L Phosphorus 4.8 H Magnesium 2.1 Total Bilirubin 0.6 AST 51 ALT 28 Alkaline Phosphatase 87 Total Creatine Kinase CK-MB (Mass) Troponin I 0.1190 NT-Pro-B Natriuret Pep 13397 H Total Protein 7.4 Albumin 4.2 Globulin 3.2 Albumin/Globulin Ratio 1.3 Procalcitonin 114.00 H Arterial Blood Potassium Urine Color Urine Clarity Urine pH Ur Specific [place] Urine Protein Urine Glucose (UA) Urine Ketones Urine Blood Urine Nitrate Urine Bilirubin Urine Urobilinogen Ur Leukocyte Esterase Urine WBC (Auto) Urine RBC (Auto) Urine WBC Clumps (Auto) Urine Bacteria Influenza Typ A,B (EIA) 08/17/18 08/17/18 08/17/18 08:50 12:02 15:26 WBC RBC Hgb Hct MCV MCH MCHC RDW Plt Count MPV Neut % (Auto) Lymph % (Auto) [place] % (Auto) Eos % (Auto) Baso % (Auto) Neut # (Auto) Lymph # (Auto) [place] # (Auto) Eos # (Auto) Baso # (Auto) Neutrophils % (Manual) Band Neutrophils % Lymphocytes % (Manual) Monocytes % (Manual) Platelet Estimate RBC Morphology PT INR APTT Puncture Site Rr pCO2 27 L pO2 400 H HCO3 21.6 ABG pH 7.44 ABG Total CO2 19.1 L ABG O2 Saturation 98.4 H ABG Base Excess -4.4 L Ismael Test Pos ABG Potassium 3.2 L A-a O2 Difference 279.0 Respiratory Index 0.7 Sodium 134.0 Chloride 105.0 Glucose 210 H Lactate 1.4 FiO2 100.0 Inspiratory BiPAP 12 Expiratory BiPAP 6 Potassium Carbon Dioxide Anion Gap BUN Creatinine Est GFR ( Amer) Est GFR (Non-Af Amer) Random Glucose Calcium Phosphorus Magnesium Total Bilirubin AST ALT Alkaline Phosphatase Total Creatine Kinase 801 H CK-MB (Mass) 4.51 H Troponin I 0.1230 H* NT-Pro-B Natriuret Pep Total Protein Albumin Globulin Albumin/Globulin Ratio Procalcitonin Arterial Blood Potassium 3.2 L Urine Color Yellow Urine Clarity Turbid Urine pH 5.0 Ur Specific [place] 1.010 Urine Protein 1+ H Urine Glucose (UA) Normal Urine Ketones Negative Urine Blood 2+ H Urine Nitrate Negative Urine Bilirubin Negative Urine Urobilinogen Normal Ur Leukocyte Esterase 3+ H Urine WBC (Auto) 1423 H Urine RBC (Auto) 13 H Urine WBC Clumps (Auto) Many H Urine Bacteria Many H Influenza Typ A,B (EIA) 08/17/18 22:08 WBC RBC Hgb Hct MCV MCH MCHC RDW Plt Count MPV Neut % (Auto) Lymph % (Auto) [place] % (Auto) Eos % (Auto) Baso % (Auto) Neut # (Auto) Lymph # (Auto) [place] # (Auto) Eos # (Auto) Baso # (Auto) Neutrophils % (Manual) Band Neutrophils % Lymphocytes % (Manual) Monocytes % (Manual) Platelet Estimate RBC Morphology PT INR APTT Puncture Site pCO2 pO2 HCO3 ABG pH ABG Total CO2 ABG O2 Saturation ABG Base Excess Ismael Test ABG Potassium A-a O2 Difference Respiratory Index Sodium Chloride Glucose Lactate FiO2 Inspiratory BiPAP Expiratory BiPAP Potassium Carbon Dioxide Anion Gap BUN Creatinine Est GFR ( Amer) Est GFR (Non-Af Amer) Random Glucose Calcium Phosphorus Magnesium Total Bilirubin AST ALT Alkaline Phosphatase Total Creatine Kinase 808 H CK-MB (Mass) Troponin I NT-Pro-B Natriuret Pep Total Protein Albumin Globulin Albumin/Globulin Ratio Procalcitonin Arterial Blood Potassium Urine Color Urine Clarity Urine pH Ur Specific [place] Urine Protein Urine Glucose (UA) Urine Ketones Urine Blood Urine Nitrate Urine Bilirubin Urine Urobilinogen Ur Leukocyte Esterase Urine WBC (Auto) Urine RBC (Auto) Urine WBC Clumps (Auto) Urine Bacteria Influenza Typ A,B (EIA)
[2018-08-17 22:35] LABS: CK-MB 3.67 ng/mL (0.0-3.38); TROPONIN I 0.104 ng/mL (0.00-0.120)
[2018-08-18] MEDS: Albuterol-Ipratrop 3 mg / 0.5 (3 ml) UD INH SCH ×4 (02:29→20:20)
[2018-08-18] MEDS: Piperacill/Tazo 2.25gm in Dex 2.25 GM/50 ML BAG IVPB SCH ×2 (05:07→12:27)
[2018-08-18 06:19] LABS: BASO % 0.2 % (0.0-2.0); EOS % 0.2 % (0.0-4.0); HEMOGLOBIN 9.6 g/dL (12.0-18.0); LYMPH # 0.2 K/uL (1.0-4.3); LYMPH % 2.3 % (20.0-40.0); MEAN CELL VOLUME 95.6 fL (80.0-94.0); MEAN CORPUSCULAR HEMOGLOBIN 32.1 pg (27.0-31.0); MEAN CORPUSCULAR HGB CONC 33.6 g/dL (33.0-37.0); MEAN PLATELET VOLUME 8.2 fL (7.2-11.7); MONO # 0.5 K/uL (0.0-0.8); MONO % 6.4 % (0.0-10.0); NEUT # 6.6 K/uL (1.8-7.0); NEUT % 90.9 % (50.0-75.0); PLATELET COUNT 147 K/uL (130-400); RBC 2.99 Mil/uL (4.40-5.90); RED CELL DISTRIBUTION WIDTH 14.6 % (11.5-14.5); WHITE BLOOD COUNT 7.3 K/uL (4.8-10.8)
[2018-08-18 06:38] LABS: ALB/GLOB RATIO 1.1 (1.0-2.1); ALBUMIN 3.1 g/dL (3.5-5.0); CALCIUM 7.6 mg/dl (8.6-10.4)
--- NOTE | 2018-08-18 07:02 | HP ---
CHIEF COMPLAINT: Palpitation, weakness, dizziness, and no urine output x2 days. HISTORY OF PRESENT ILLNESS: This is a 77-year-old [place] male with history of chronic systolic heart failure, hypertension, hyperlipidemia, and according to him, he has prostate cancer, and he sees Dr. Lewis for his urology care; and he is compliant with his diet, medication, and followup. He came to emergency room because of increasing fatigue, low urine output. malaise; and he had lower abdominal distention, some discomfort. He denies any dysuria, hematuria, pyuria. He denies any fever, chills, or rigors. He denies any flank pain, hip pain. He denies any history of abdominal pain. He had nausea, no vomiting. He had palpitation weakness, dizziness, mild chest discomfort. He denies any nausea. He denies any sneezing, itchy eyes, itchy nose. He denies any joint pain, hip pain, knee pain, ankle pain. He denies any history of trauma, fall, loss of consciousness. The patient came to the emergency room; and he was given Zofran, and his QT interval got prolonged; and he developed bundle branch block but then it got better. There is no history of chest pain. There is no history of vertigo. PAST MEDICAL HISTORY: Prostate cancer, hypertension. SOCIAL HISTORY: He is nonsmoker and non-ETOH user. ALLERGIES: HE IS ALLERGIC TO ASPIRIN. CURRENT MEDICATIONS: Clonidine, Lipitor, Cardizem, Neurontin, Cardura, Flomax, Norvasc, and hydrochlorothiazide. PHYSICAL EXAMINATION: GENERAL: An elderly male who is weak, complaining of feeling hungry. VITAL SIGNS: Blood pressure 113/48, pulse 95, respiratory rate 20, and temperature 98. SKIN: No rashes. No bruises. No purpura. No petechiae. HEENT: Atraumatic and normocephalic. Negative pallor. Negative jaundice. Extraocular movements are intact, normal accommodation. Oral mucosa is dry. NECK: Supple. No JVD. No lymph node. No thyromegaly. No carotid bruit. CHEST WALL: Bilateral symmetrical expansion. No tenderness. No masses. No deformity. No visible pulsation. LUNGS: Bilaterally clear. No rale, no rhonchi. CARDIOVASCULAR SYSTEM: S1 and S2 regular. Tachycardic. ABDOMEN: Soft. Nontender. Bowel sounds are positive. EXTREMITIES: No clubbing, cyanosis, or edema. CENTRAL NERVOUS SYSTEM: Awake, alert, and oriented x3. Cranial nerves II through XII are normal. Power 5/5 x4. Plantars are downgoing. ASSESSMENT: 1. Acute renal failure with obstructive uropathy. Most likely, there is recurrent prostate cancer versus urethral stricture. 2. Dehydration, tachycardia, rule out sepsis. 3. Rule out coronary artery disease. 4. Hyperlipidemia. PLAN: Admit. Detailed orders are written. Please refer to orders. The patient was seen and examined. Wily Liao MD
[2018-08-18 07:54] LABS: ANISOCYTOSIS SLIGHT; BANDS 3 % (0-2); HYPOCHROMIC SLIGHT; LYMPHOCYTE 2 % (20-40); MONOCYTE 5 % (0-10); NEUTROPHIL 90 % (50-75); PLATELET ESTIMATE NORMAL (NORMAL); POIKILOCYTOSIS SLIGHT; TOTAL CELLS COUNTED 100
[2018-08-18 07:55] LABS: TOXIC GRANULATION PRESENT
[2018-08-18] MEDS ORDERED: Morphine 4 MG/ML VIAL ONE (08:07)
[2018-08-18] MEDS: diltiaZEM 180 mg/24 Hours CD Cap PO SCH (09:28)
--- NOTE | 2018-08-18 09:40 | CT ---
Date of service: 08/18/2018 PROCEDURE: CT Abdomen and Pelvis without intravenous contrast HISTORY: urinary obstruction COMPARISON: 04/10/2018 TECHNIQUE: Without contrast.. Contrast dose: 0 Radiation dose: Total exam DLP = 246.36 mGy-cm. This CT exam was performed using one or more of the following dose reduction techniques: Automated exposure control, adjustment of the mA and/or kV according to patient size, and/or use of iterative reconstruction technique. FINDINGS: LOWER THORAX: Small bilateral pleural effusion. Bilateral lower lobe compressive atelectasis. Mild cardiomegaly. LIVER: Unremarkable. No gross lesion or ductal dilatation. GALLBLADDER AND BILE DUCTS: Unremarkable. PANCREAS: Unremarkable. No gross lesion or ductal dilatation. SPLEEN: Unremarkable. ADRENALS: Unremarkable. No mass. KIDNEYS AND URETERS: Two rounded low-attenuation masses in right kidney, 1.6 cm mid renal and 1.9 cm lower pole. No change. Likely cysts. No new mass. No calculus or hydronephrosis. VASCULATURE: Unremarkable. No aortic aneurysm. There is atherosclerotic calcification of the abdominal aorta. BOWEL: Unremarkable. No obstruction. No gross mural thickening. APPENDIX: Not identified. No secondary findings to suggest acute appendicitis. PERITONEUM: Trace fluid in pelvis no pneumoperitoneum. LYMPH NODES: Unremarkable. No enlarged lymph nodes. BLADDER: Diffusely thick walled. Jasso catheter noted. Rule out cystitis. Correlate with urinalysis. Left posterior bladder diverticulum, unchanged. REPRODUCTIVE: Unremarkable prostate BONES: No acute fracture. OTHER FINDINGS: None. IMPRESSION: Diffusely thickened bladder wall common nonspecific. Rule out cystitis. Jasso catheter balloon noted within urinary bladder lumen. Left posterolateral bladder diverticulum unchanged from prior examination. Small bilateral pleural effusion. Bilateral lower lobe compressive atelectasis. Cardiomegaly. 2 stable low-density right renal masses, likely cysts.
[2018-08-18] MEDS: Morphine 4 MG/ML VIAL IVP PRN (12:45)
--- NOTE | 2018-08-18 13:28 | US ---
HISTORY: UTI COMPARISON: None available. TECHNIQUE: Sonographic evaluation of the abdomen. FINDINGS: LIVER: Measures 16.1 cm in sagittal dimension. Echogenic liver may be seen in setting of hepatic parenchymal disease or fatty infiltration. No focal hepatic mass identified. The main portal vein appears patent with normal directional flow. No intrahepatic bile duct dilatation. GALLBLADDER: No gallstones. No gallbladder wall thickening. Negative sonographic Santillan's sign as assessed by the boxing instructor. COMMON BILE DUCT: Measures 4 mm. PANCREAS: Not well visualized. RIGHT KIDNEY: Measures 13.2 x 5.7 x 6.1 cm. No obstructing calculus or hydronephrosis. Right renal cysts measuring up to approximately 2.6 cm. LEFT KIDNEY: Measures 9.8 x 4.9 x 4.3cm. No obstructing calculus or hydronephrosis identified. SPLEEN: Measures approximately 9.1 cm. AORTA: Limited views appear unremarkable. IVC: Limited views appear unremarkable. OTHER FINDINGS: Incidental note is made of bilateral pleural effusions. IMPRESSION: Echogenic liver may be seen in setting of hepatic parenchymal disease or fatty infiltration. Right renal cysts. Incidental note is made of bilateral pleural effusions.
--- NOTE | 2018-08-18 13:42 | VASCLAB ---
Date of service: 08/18/2018 PROCEDURE: Lower Extremity Venous Duplex Exam. HISTORY: Swelling, r/o DVT PRIORS: None. TECHNIQUE: Bilateral common femoral, femoral, popliteal and posterior tibial, peroneal and great saphenous veins were evaluated. Flow was assessed with color Doppler, compressibility, assessment of phasic flow and augmentation response. Report prepared by TERESA Robison FINDINGS: RIGHT: 1. Common Femoral Vein: 1.1. Compressibility - Fully compressible: Thrombus - None : Flow - Phasic: Augmentation -Normal: Reflux - None. 2. Femoral Vein: 2.1. Compressibility - Fully compressible: Thrombus - None : Flow - Phasic: Augmentation -Normal: Reflux - None. 3. Popliteal Vein: 3.1. Compressibility - Fully compressible: Thrombus - None : Flow - Phasic: Augmentation -Normal: Reflux - None. 4. Posterior Tibial Vein: 4.1. Compressibility - Fully compressible: Thrombus - None: Flow - Phasic: Augmentation -Normal: Reflux - None. 5. Peroneal Vein: 5.1. Compressibility - Fully compressible: Thrombus - None: Flow - Phasic: Augmentation -Normal: Reflux - None. 6. Great Saphenous Vein: 6.1. Compressibility - Fully compressible: Thrombus - None: Flow - Phasic: Augmentation - Normal: Reflux - None. LEFT: 1. Common Femoral Vein: 1.1. Compressibility - Fully compressible: Thrombus - None: Flow - Phasic: Augmentation -Normal: Reflux - None. 2. Femoral Vein: 2.1. Compressibility - Fully compressible: Thrombus - None: Flow - Phasic: Augmentation -Normal: Reflux - None. 3. Popliteal Vein: 3.1. Compressibility - Fully compressible: Thrombus - None : Flow - Phasic: Augmentation -Normal: Reflux - None. 4. Posterior Tibial Vein: 4.1. Compressibility - Fully compressible: Thrombus - None: Flow - Phasic: Augmentation -Normal: Reflux - None. 5. Peroneal Vein: 5.1. Compressibility - Fully compressible: Thrombus - None: Flow - Phasic: Augmentation -Normal: Reflux - None. 6. Great Saphenous Vein: 6.1. Compressibility - Fully compressible: Thrombus - None: Flow - Phasic: Augmentation - Normal: Reflux - None. OTHER FINDINGS: Right: None significant. Left: None significant. IMPRESSION: Right: No evidence of deep or superficial vein thrombosis of the right lower extremity. Normal valve function noted of the right side. Left: No evidence of deep or superficial vein thrombosis of the left lower extremity. Normal valve function noted of the left side.
[2018-08-18] MEDS: Sodium Chloride 0.9% 1,000 ML IV SCH (17:05)
--- NOTE | 2018-08-18 18:55 | CP.CCUPN ---
CCU Subjective - Physician Review Subjective (Free Text): PGY-[address] ICU progress note for Dr Vargas service Patient is seen and examined at bedside. Patient states feeling better, with improved abdominal, suprapubic pain. Patient is currently using Bipap machine, sat at 96%. Patient desaturates without mask, encouraged to use it. Patient has lopez cath in place, about 250 cc of urine collected. Denies fever, chills, chest pain, sob, nausea, vomiting or leg pain/swelling. 08/18/18 18:51 Critical Care Time Spent (in minutes): 40 CCU Objective - Vital Signs / Intake & Output Vital Signs (Last 4 hours): Vital Signs Temp Pulse Resp BP Pulse Ox 08/18/18 18:00 102 H 26 H 96 08/18/18 17:52 104 H 41 H 110/62 98 08/18/18 17:08 95 H 17 113/62 93 L 08/18/18 17:00 93 H 18 95 08/18/18 16:56 92 H 08/18/18 16:00 98.8 F 111 H 35 H 86 L 08/18/18 15:00 98 H 28 H 92 L Intake and Output (Last 8hrs): Intake & Output 08/18/18 08/18/18 08/18/18 06:59 14:59 22:59 Intake Total 510 625 440 Output Total 1160 925 350 Balance -650 -300 90 Weight 123 lb Intake: Intake, IV Amount 310 260 220 Right Antecubital 310 260 220 Oral 200 365 220 Output: Urine 1160 925 350 Urethral (Lopez) 1160 925 350 Other: # Bowel Movements 0 0 - Physical Exam Head: Positive for: Atraumatic, Normocephalic Extroacular Muscles: Positive for: EOMI Conjunctiva: Positive for: Normal Mouth: Positive for: Moist Mucous Membranes Respiratory/Chest: Positive for: Clear to Auscultation. Negative for: Respiratory Distress, Wheezes, Rales, Rhonchi, Tachypneic Cardiovascular: Positive for: Regular Rate and Rhythm, Normal S1, S2 Abdomen: Positive for: Tenderness (Left lower quadrant tenderness to palpation ), Distention, Normal Bowel Sounds Upper Extremity: Positive for: Normal Inspection Lower Extremity: Positive for: Normal Inspection Neurological: Positive for: CN II-XII Intact Skin: Positive for: Warm, Dry, Normal Color Psychiatric: Positive for: Alert, Oriented x 3 - Medications Active Medications: Active Medications Generic Name Dose Route Start Last Admin Trade Name Freq PRN Reason Stop Dose Admin Acetaminophen 650 mg 08/17/18 17:58 08/18/18 01:11 Tylenol 325mg Tab PO 650 mg Q6 PRN Administration Fever >100.4 F Albuterol/Ipratropium 3 ml 08/17/18 20:00 08/18/18 13:47 Duoneb 3 Mg/0.5 Mg (3 Ml) Ud INH 3 ml RQ6 [facility] Administration Clopidogrel Bisulfate 75 mg 08/17/18 13:15 08/18/18 09:28 Plavix PO 75 mg DAILY [facility] Administration Diltiazem HCl 180 mg 08/17/18 13:15 08/18/18 09:28 Cardizem Cd PO 180 mg DAILY [facility] Administration Heparin Sodium (Porcine) 5,000 units 08/18/18 06:15 08/18/18 13:43 Heparin SC 5,000 units Q8 [facility] Administration Sodium Chloride 1,000 mls @ 30 mls/hr 08/17/18 16:58 08/18/18 17:05 Sodium Chloride 0.9% IV 30 mls/hr .Q24H [facility] Administration Piperacillin Sod/Tazobactam 100 mls @ 100 mls/hr 08/18/18 18:00 08/18/18 18:04 Sod 2.25 gm/ Sodium Chloride IV 100 mls/hr Q6H [facility] Administration Protocol Morphine Sulfate 2 mg 08/18/18 08:01 08/18/18 12:45 Morphine IVP 2 mg Q4 PRN Administration Pain, moderate (4-7) Pantoprazole Sodium 40 mg 08/18/18 10:00 08/18/18 09:28 Protonix Inj IVP 40 mg DAILY [facility] Administration Tamsulosin HCl 0.4 mg 08/18/18 10:00 08/18/18 09:27 Flomax PO 0.4 mg DAILY [facility] Administration - Patient Studies Lab Studies: Microbiology Studies 08/17/18 21:51 MRSA Culture (Admit) - Final Naris MRSA NOT DETECTED 08/17/18 07:08 Blood Culture - Preliminary Blood Gram Negative Vinicio Gram Stain - Final 08/17/18 07:08 Blood Culture - Preliminary Blood Gram Negative Vinicio Gram Stain - Final 08/17/18 08:50 Urine Culture - Preliminary Urine,Catheterized Gram Negative Vinicio Lab Studies 08/18/18 08/18/18 08/17/18 Range/Units 06:13 06:13 22:08 WBC 7.3 (4.8-10.8) K/uL RBC 2.99 L (4.40-5.90) Mil/uL Hgb 9.6 L (12.0-18.0) g/dL Hct 28.5 L (35.0-51.0) % MCV 95.6 H (80.0-94.0) fL MCH 32.1 H (27.0-31.0) pg MCHC 33.6 (33.0-37.0) g/dL RDW 14.6 H (11.5-14.5) % Plt Count 147 (130-400) K/uL MPV 8.2 (7.2-11.7) fL Neut % (Auto) 90.9 H (50.0-75.0) % Lymph % (Auto) 2.3 L (20.0-40.0) % [place] % (Auto) 6.4 (0.0-10.0) % Eos % (Auto) 0.2 (0.0-4.0) % Baso % (Auto) 0.2 (0.0-2.0) % Neut # (Auto) 6.6 (1.8-7.0) K/uL Lymph # (Auto) 0.2 L (1.0-4.3) K/uL [place] # (Auto) 0.5 (0.0-0.8) K/uL Eos # (Auto) 0.0 (0.0-0.7) K/uL Baso # (Auto) 0.0 (0.0-0.2) K/uL Neutrophils % (Manual) 90 H (50-75) % Band Neutrophils % 3 H (0-2) % Lymphocytes % (Manual) 2 L (20-40) % Monocytes % (Manual) 5 (0-10) % Toxic Granulation Present Platelet Estimate Normal (NORMAL) Hypochromasia (manual) Slight Poikilocytosis (manual Slight Anisocytosis (manual) Slight Sodium 137 (132-148) mmol/L Potassium 3.5 L (3.6-5.2) mmol/L Chloride 104 (98-107) mmol/L Carbon Dioxide 21 L (22-30) mmol/L Anion Gap 16 (10-20) BUN 81 H (9-20) mg/dL Creatinine 4.4 H (0.8-1.5) mg/dL Est GFR ( Amer) 16 Est GFR (Non-Af Amer) 13 Random Glucose 162 H (75-110) mg/dL Calcium 7.6 L (8.6-10.4) mg/dl Phosphorus 4.8 H (2.5-4.5) mg/dL Magnesium 2.3 (1.6-2.3) mg/dL Total Bilirubin 0.6 (0.2-1.3) mg/dL AST 43 (17-59) U/L ALT 31 (21-72) U/L Alkaline Phosphatase 78 (38-126) U/L Total Creatine Kinase 808 H (55-170) U/L CK-MB (Mass) 3.67 H (0.0-3.38) ng/mL Troponin I 0.1040 (0.00-0.120) ng/mL Total Protein 6.0 L (6.3-8.3) g/dL Albumin 3.1 L D (3.5-5.0) g/dL Globulin 2.8 (2.2-3.9) gm/dL Albumin/Globulin Ratio 1.1 (1.0-2.1) Laboratory Results - last 24 hr 08/17/18 08/18/18 08/18/18 22:08 06:13 06:13 WBC 7.3 RBC 2.99 L Hgb 9.6 L Hct 28.5 L MCV 95.6 H MCH 32.1 H MCHC 33.6 RDW 14.6 H Plt Count 147 MPV 8.2 Neut % (Auto) 90.9 H Lymph % (Auto) 2.3 L [place] % (Auto) 6.4 Eos % (Auto) 0.2 Baso % (Auto) 0.2 Neut # (Auto) 6.6 Lymph # (Auto) 0.2 L [place] # (Auto) 0.5 Eos # (Auto) 0.0 Baso # (Auto) 0.0 Neutrophils % (Manual) 90 H Band Neutrophils % 3 H Lymphocytes % (Manual) 2 L Monocytes % (Manual) 5 Toxic Granulation Present Platelet Estimate Normal Hypochromasia (manual) Slight Poikilocytosis (manual Slight Anisocytosis (manual) Slight Sodium 137 Potassium 3.5 L Chloride 104 Carbon Dioxide 21 L Anion Gap 16 BUN 81 H Creatinine 4.4 H Est GFR ( Amer) 16 Est GFR (Non-Af Amer) 13 Random Glucose 162 H Calcium 7.6 L Phosphorus 4.8 H Magnesium 2.3 Total Bilirubin 0.6 AST 43 ALT 31 Alkaline Phosphatase 78 Total Creatine Kinase 808 H CK-MB (Mass) 3.67 H Troponin I 0.1040 Total Protein 6.0 L Albumin 3.1 L D Globulin 2.8 Albumin/Globulin Ratio 1.1 Radiology Impressions: Radiology Impressions Duplex Scan Lower Extremity Artery 08/17/18 20:33 IMPRESSION: Right: No evidence of deep or superficial vein thrombosis of the right lower extremity. Normal valve function noted of the right side. Left: No evidence of deep or superficial vein thrombosis of the left lower extremity. Normal valve function noted of the left side. Abdomen Ultrasound 08/18/18 07:37 IMPRESSION: Echogenic liver may be seen in setting of hepatic parenchymal disease or fatty infiltration. Right renal cysts. Incidental note is made of bilateral pleural effusions. Abdomen/Pelvis CT 08/18/18 08:01 IMPRESSION: Diffusely thickened bladder wall common nonspecific. Rule out cystitis. Lopez catheter balloon noted within urinary bladder lumen. Left posterolateral bladder diverticulum unchanged from prior examination. Small bilateral pleural effusion. Bilateral lower lobe compressive atelectasis. Cardiomegaly. 2 stable low-density right renal masses, likely cysts. Review of Systems - Review of Systems All systems: reviewed and no additional remarkable complaints except Review of Systems: as mentioned in subjective Critical Care Progress Note - Extremities/Vascular Does the Patient have a Central Venous Catheter?: No Does the Patient have a Lopez Catheter?: Yes Does the Patient need a Lopez Catheter?: Yes Catheter Insertion Criteria: Patient has acute urinary retention or bladder outlet obstruction - Prophylaxis GI Prophylaxis GI: PPI - Prophylaxis DVT Prophylaxis DVT: Heparin SQ - Nutrition Nutrition: Nutrition Category Date Time Status Heart Healthy Diet [DIET] Diets 08/17/18 Dinner Active Assessment/Plan - Assessment and Plan (Free Text) Plan: 77 year old patient with pmhx of HTN, prostate CA with radiation (last 08/11), BPH, chronic heart failure admitted for urine retention and malaise, transient BBP with increased QTC, found to have pleural edema with resp failure, and sepsis likely due to UTI and ZAINA. Neuro -AAOx3 Pulm - Duonebs PRN Q6 - BIPAP Cardio - tele monitor - Plavix 75mg PO Daily - Cardizem 180 mg PO daily - Dr Mancuso - f/u recs - F/U troponin x 3, first negative GI - HHD - protonix Renal - Flomax 0.4 - NS @ 30cc/hr - CT abdomen/pelvis - possible bladder diverticulum - f/u official report - Urology consult - Dr Lewis ID - Gram negative vinicio - Urine and blood culture - f/u sensitivities - MRSA not detected -Ceftriaxone d/c -zosyn IV Q6 - afebrile, no leukocytosis PPX GI - protonix DVT - Heparin SQ tylenol PRN Morphine 2mg IVP Q4 PRN for pain Plan discussed with Dr Alicia Schwartz - Date & Time Date: 08/18/18 Time: 09:00
--- NOTE | 2018-08-18 21:30 | CARD ---
APPROVED REPORT Date of service: 08/17/2018 EKG Measurement Heart [id number] MA [id number] <Conclusion> Sinus tachycardia Otherwise normal ECG
--- NOTE | 2018-08-18 21:30 | CARD ---
APPROVED REPORT Date of service: 08/17/2018 EKG Measurement Heart [id number] MD [id number] <Conclusion> Sinus tachycardia with occasional premature ventricular complexes Possible Left atrial enlargement Left axis deviation Nonspecific IVCD Anteroseptal infarct, age undetermined ST & T wave abnormality, consider lateral ischemia Abnormal ECG
--- NOTE | 2018-08-18 22:36 | CP.PCM.PN ---
Subjective - Subjective Subjective: dictated Objective - Vital Signs/Intake and Output Vital Signs (last 24 hours): Temp Pulse Resp BP Pulse Ox 99.8 F H 91 H 37 H 136/62 99 08/18/18 20:00 08/18/18 22:31 08/18/18 21:00 08/18/18 20:52 08/18/18 21:00 Intake and Output: 08/18/18 08/19/18 18:59 06:59 Intake Total 1065 90 Output Total 1275 Balance -210 90 - Medications Medications: Current Medications Acetaminophen (Tylenol 325mg Tab) 650 mg PO Q6 PRN PRN Reason: Fever >100.4 F Last Admin: 08/18/18 01:11 Dose: 650 mg Albuterol/Ipratropium (Duoneb 3 Mg/0.5 Mg (3 Ml) Ud) 3 ml INH RQ6 [facility] Last Admin: 08/18/18 20:20 Dose: 3 ml Clopidogrel Bisulfate (Plavix) 75 mg PO DAILY [facility] Last Admin: 08/18/18 09:28 Dose: 75 mg Diltiazem HCl (Cardizem Cd) 180 mg PO DAILY [facility] Last Admin: 08/18/18 09:28 Dose: 180 mg Heparin Sodium (Porcine) (Heparin) 5,000 units SC Q8 [facility] Last Admin: 08/18/18 21:05 Dose: 5,000 units Sodium Chloride (Sodium Chloride 0.9%) 1,000 mls @ 30 mls/hr IV .Q24H [facility] Last Admin: 08/18/18 17:05 Dose: 30 mls/hr Piperacillin Sod/Tazobactam (Sod 2.25 gm/ Sodium Chloride) 100 mls @ 100 mls/hr IV Q6H [facility]; Protocol Last Admin: 08/18/18 18:04 Dose: 100 mls/hr Morphine Sulfate (Morphine) 2 mg IVP Q4 PRN PRN Reason: Pain, moderate (4-7) Last Admin: 08/18/18 12:45 Dose: 2 mg Pantoprazole Sodium (Protonix Inj) 40 mg IVP DAILY [facility] Last Admin: 08/18/18 09:28 Dose: 40 mg Tamsulosin HCl (Flomax) 0.4 mg PO DAILY [facility] Last Admin: 08/18/18 09:27 Dose: 0.4 mg - Labs Labs: 08/18/18 06:13 01/14/19 06:13 PT 10.2 SECONDS (9.7-12.2) 08/17/18 07:39 INR 0.9 08/17/18 07:39 APTT 30 SECONDS (21-34) 08/17/18 07:39
[2018-08-19] MEDS: Albuterol-Ipratrop 3 mg / 0.5 (3 ml) UD INH SCH ×4 (01:16→19:02)
--- NOTE | 2018-08-19 03:53 | PN ---
DATE: 08/18/2018 SUBJECTIVE: He is on BiPAP. He gets short of breath. He is waiting to be seen by Cardiology. The patient is on IV fluids. His creatine is stable at 4.4, it went down from 5.9 yesterday to 4.4. CPK is going down. The patient has urinalysis, which is positive for wbc's 1425, potassium is 3.5. The patient has BiPAP in place. He feels better. He is calm. He has Jasso in and he is making urine. PHYSICAL EXAMINATION: VITAL SIGNS: Blood pressure 124/66, pulse 103, respiratory rate 18, temperature 97. LUNGS: Bilateral rales, rhonchi. CARDIOVASCULAR SYSTEM: S1, S2 plus S3 positive. ABDOMEN: Bowel sounds are normoactive at present and Jasso catheter is in place with urine. ASSESSMENT: 1. Obstructive uropathy with prostate cancer. The patient has a Jasso and the patient is putting out urine. He is on intravenous fluid. 2. Congestive heart failure, fluid overload, which is multifactorial due to kidney dysfunction with fluid overload. 3. Septicemia. The patient's urine and blood cultures are positive for gram-negative rods, pending sensitivity. 4. Dehydration. 5. Anemia due to chronic disease. PLAN: Continue current medications. Monitor the patient. Wily Liao MD
[2018-08-19] MEDS: Morphine 4 MG/ML VIAL IVP PRN ×3 (04:55→22:30)
[2018-08-19 06:40] LABS: BASO % 0.2 % (0.0-2.0); EOS % 0.5 % (0.0-4.0); HEMOGLOBIN 9.5 g/dL (12.0-18.0); LYMPH # 0.2 K/uL (1.0-4.3); LYMPH % 2.8 % (20.0-40.0); MEAN CELL VOLUME 94.9 fL (80.0-94.0); MEAN CORPUSCULAR HEMOGLOBIN 31.9 pg (27.0-31.0); MEAN CORPUSCULAR HGB CONC 33.7 g/dL (33.0-37.0); MEAN PLATELET VOLUME 8.7 fL (7.2-11.7); MONO # 0.5 K/uL (0.0-0.8); MONO % 6.3 % (0.0-10.0); NEUT # 7.6 K/uL (1.8-7.0); NEUT % 90.2 % (50.0-75.0); PLATELET COUNT 156 K/uL (130-400); RBC 2.96 Mil/uL (4.40-5.90); RED CELL DISTRIBUTION WIDTH 14.8 % (11.5-14.5); WHITE BLOOD COUNT 8.4 K/uL (4.8-10.8)
[2018-08-19 07:00] LABS: ALB/GLOB RATIO 1.1 (1.0-2.1); ALBUMIN 3.2 g/dL (3.5-5.0); CALCIUM 7.5 mg/dl (8.6-10.4)
[2018-08-19] MEDS ORDERED: Potassium Chloride 20 mEq ER Tab PO ONE (08:09)
[2018-08-19 08:36] LABS: BANDS 1 % (0-2); EOSINOPHIL 2 % (0-4); LYMPHOCYTE 5 % (20-40); MONOCYTE 7 % (0-10); NEUTROPHIL 84 % (50-75); PLATELET ESTIMATE NORMAL (NORMAL); REACTIVE LYMPHOCYTES 1 % (0-0); TOTAL CELLS COUNTED 100
[2018-08-19 08:37] LABS: ANISOCYTOSIS SLIGHT; HYPOCHROMIC SLIGHT; POIKILOCYTOSIS SLIGHT
[2018-08-19 08:38] LABS: TARGET CELLS SLIGHT; TOXIC GRANULATION PRESENT
[2018-08-19] MEDS: diltiaZEM 180 mg/24 Hours CD Cap PO SCH (09:34)
[2018-08-19] MEDS ORDERED: Potassium Chloride 20 mEq ER Tab PO SCH (10:00)
--- NOTE | 2018-08-19 13:40 | CP.PCM.CON ---
History of Present Illness - History of Present Illness History of Present Illness: INFECTIOUS DISEASE CONSULT; HPI: 77-year-old male with history of prostate CA, dx FEBRUARY 2018, S/P 48 RADIATION TREATMENTS, last radiation therapy Aug, who presented to [facility] with progressive shortness of breath and cough, and fevers for the past few days prior to admission.. Patient also was found to have urinary retention with acute renal failure on admission. Patient had a temperature 102 on admission and appropriate blood cultures were drawn and was given a dose of ceftriaxone. Presently patient on IV Zosyn 2.25 g every 6 hourly. He is on BiPAP due to respiratory insufficiency.CHEST X-RAY ON ADMISSION SHOWED CONGESTIVE HEART FAILURE MILD WITH LEFT HILAR PROMINENCE AND EDEMA.P is coughing out whitish phlegm. Patient underwent CT scanning of the abdomen and pelvis without by mouth on IV contrast and was found to have 2 rounded low attenuation masses in right kidney with questionable cystitis and bladder diverticulum. Abdominal ultrasound showed right renal cyst with fatty liver. Patient blood cultures and urine cultures done on 08/17/18 reported GRAM NEGATIVE RODS both sets and positive urine cultures also showing gram-negative rods. Patient has clumps of WBCs and many bacteria in the urine. Infectious disease consultation requested by PMD for appropriate therapy for complicated UTI and acute renal failure. Patient presently denies any abdominal pain, nausea or vomiting. Patient denies any expectoration or any history of chest pain or hemoptysis. PMH: Arthritis, Cardia Arrhythmia, HTN, Hypercholesterolemia, Chronic Kidney Disease (left kidney 50 percent functioning only per pt) Family History: States: Unknown Family Hx - Social History Hx Alcohol Use: Yes (''occassionally'') Hx Substance Use: No - Immunization History Hx Tetanus Toxoid Vaccination: No Hx Influenza Vaccination: Yes (2016) Hx Pneumococcal Vaccination: Yes (2016) ALLERGY; ASA. Review of Systems - Constitutional Constitutional: Chills, Fever - EENT Eyes: absent: Change in Vision Nose/Mouth/Throat: Dry Mouth. absent: Mouth Lesions, Odynophagia - Cardiovascular Cardiovascular: Dyspnea, Leg Edema. absent: Chest Pain, Palpitations - Respiratory Respiratory: Cough, Chest Congestion - Gastrointestinal Gastrointestinal: absent: Abdominal Pain, Diarrhea - Genitourinary Genitourinary: Difficulty Urinating, Urinary Hesitance - Neurological Neurological: As Per HPI. absent: Headaches - Hematologic/Lymphatic Hematologic: As Per HPI. absent: Easy Bleeding, Easy Bruising, Lymphadenopathy Past Patient History - Past Medical History & Family History Past Medical History?: Yes - Past Social History Smoking Status: Former Smoker - CARDIAC Hx Cardia Arrhythmia: Yes Hx Hypercholesterolemia: Yes Hx Hypertension: Yes - NEUROLOGICAL Hx Neurological Disorder: Yes (SEE COMMENT) Other/Comment: NEUROPATHY - HEENT Hx HEENT Problems: Yes (seasonal allergies) - RENAL Hx Chronic Kidney Disease: Yes (left kidney 50 percent functioning only per pt) - ENDOCRINE/METABOLIC Hx Endocrine Disorders: Yes Hx Diabetes Mellitus Type 2: Yes - HEMATOLOGICAL/ONCOLOGICAL Hx Cancer: Yes (prostate CA) - MUSCULOSKELETAL/RHEUMATOLOGICAL Hx Arthritis: Yes - GASTROINTESTINAL Hx Gastrointestinal Disorders: Yes (constipation) - GENITOURINARY/GYNECOLOGICAL Hx Genitourinary Disorders: Yes Hx Prostate Cancer: Yes Hx Prostate Problems: Yes - PSYCHIATRIC Hx Substance Use: No - SURGICAL HISTORY Hx Surgeries: No - ANESTHESIA Hx Anesthesia: No Meds Allergies/Adverse Reactions: Allergies Allergy/AdvReac Type Severity Reaction Status Date / Time aspirin Allergy RASH Verified 01/29/17 17:21 - Medications Medications: Current Medications Acetaminophen (Tylenol 325mg Tab) 650 mg PO Q6 PRN PRN Reason: Fever >100.4 F Last Admin: 08/19/18 08:55 Dose: 650 mg Albuterol/Ipratropium (Duoneb 3 Mg/0.5 Mg (3 Ml) Ud) 3 ml INH RQ6 [facility] Last Admin: 08/19/18 13:19 Dose: 3 ml Clopidogrel Bisulfate (Plavix) 75 mg PO DAILY [facility] Last Admin: 08/19/18 09:34 Dose: 75 mg Diltiazem HCl (Cardizem Cd) 180 mg PO DAILY [facility] Last Admin: 08/19/18 09:34 Dose: 180 mg Heparin Sodium (Porcine) (Heparin) 5,000 units SC Q8 [facility] Last Admin: 08/19/18 13:29 Dose: 5,000 units Sodium Chloride (Sodium Chloride 0.9%) 1,000 mls @ 30 mls/hr IV .Q24H [facility] Last Admin: 08/18/18 17:05 Dose: 30 mls/hr Piperacillin Sod/Tazobactam (Sod 2.25 gm/ Sodium Chloride) 100 mls @ 100 mls/hr IV Q6H [facility]; Protocol Last Admin: 08/19/18 12:33 Dose: 100 mls/hr Aztreonam 500 mg/ Sodium (Chloride) 50 mls @ 100 mls/hr IVPB Q24H [facility]; Protocol Stop: 08/20/18 00:14 Last Admin: 08/19/18 00:45 Dose: 100 mls/hr Morphine Sulfate (Morphine) 2 mg IVP Q4 PRN PRN Reason: Pain, moderate (4-7) Last Admin: 08/19/18 04:55 Dose: 2 mg Pantoprazole Sodium (Protonix Inj) 40 mg IVP DAILY [facility] Last Admin: 08/19/18 09:34 Dose: 40 mg Tamsulosin HCl (Flomax) 0.4 mg PO DAILY [facility] Last Admin: 08/19/18 09:35 Dose: 0.4 mg Physical Exam - Constitutional Appears: No Acute Distress - Head Exam Head Exam: NORMAL INSPECTION (80) - Eye Exam Eye Exam: EOMI, PERRL - ENT Exam ENT Exam: Normal Oropharynx - Neck Exam Neck exam: Positive for: Normal Inspection - Respiratory Exam Respiratory Exam: Rales, NORMAL BREATHING PATTERN - Cardiovascular Exam Cardiovascular Exam: REGULAR RHYTHM, +S1, +S2 - GI/Abdominal Exam GI & Abdominal Exam: Distended (MILDLY), Normal Bowel Sounds, Soft, Tenderness (SUPRAPUBIC.) - Extremities Exam Extremities exam: Positive for: pedal pulses present. Negative for: calf tenderness, pedal edema - Neurological Exam Neurological exam: Alert, CN II-XII Intact, Oriented x3, Reflexes Normal - Psychiatric Exam Psychiatric exam: Normal Mood - Skin Skin Exam: Dry, Normal Color, Warm Results - Vital Signs Recent Vital Signs: Last Vital Signs Temp 98.7 F 08/19/18 08:00 Pulse 87 08/19/18 13:00 Resp 26 H 08/19/18 13:00 BP 127/59 L 08/19/18 12:41 Pulse Ox 92 L 08/19/18 13:00 - Labs Result Diagrams: 08/19/18 06:32 08/19/18 06:32 Labs: Laboratory Results - last 24 hr 08/19/18 08/19/18 06:32 06:32 WBC 8.4 RBC 2.96 L Hgb 9.5 L Hct 28.1 L MCV 94.9 H MCH 31.9 H MCHC 33.7 RDW 14.8 H Plt Count 156 MPV 8.7 Neut % (Auto) 90.2 H Lymph % (Auto) 2.8 L [place] % (Auto) 6.3 Eos % (Auto) 0.5 Baso % (Auto) 0.2 Neut # (Auto) 7.6 H Lymph # (Auto) 0.2 L [place] # (Auto) 0.5 Eos # (Auto) 0.0 Baso # (Auto) 0.0 Neutrophils % (Manual) 84 H Band Neutrophils % 1 Lymphocytes % (Manual) 5 L Reactive Lymphs % 1 H Monocytes % (Manual) 7 Eosinophils % (Manual) 2 Toxic Granulation Present Platelet Estimate Normal Hypochromasia (manual) Slight Poikilocytosis (manual Slight Anisocytosis (manual) Slight Target Cells Slight Sodium 138 Potassium 3.2 L Chloride 102 Carbon Dioxide 26 Anion Gap 13 BUN 62 H Creatinine 3.9 H Est GFR ( Amer) 18 Est GFR (Non-Af Amer) 15 Random Glucose 155 H Calcium 7.5 L Phosphorus 3.8 Magnesium 2.1 Total Bilirubin 0.7 AST 38 ALT 30 Alkaline Phosphatase 110 Total Protein 6.2 L Albumin 3.2 L Globulin 3.0 Albumin/Globulin Ratio 1.1 - Imaging and Cardiology Chest x-ray Status: Report reviewed by me Assessment & Plan (1) Gram-negative sepsis Status: Acute (2) Acute renal failure Status: Acute (3) Respiratory failure Status: Acute (4) Urinary retention Status: Acute (5) Anxiety Status: Acute - Assessment and Plan (Free Text) Plan: PLAN; F/U BLOOD CULTURES AND URINE CULTURES DC IV ZOSYN IN VIEW OF SALT OVERLOAD. PT IN CHF INCREASE IV AZACTAM 500 MG EVERY 12 HOURLY 08/18 BLOOD CULTURES POSITIVE FOR ESCHERICHIA COLI -HIGGINBOTHAM SENSITIVE. F/U RENAL FUNCTIONS CLOSELY. CASE DISCUSSED W STAFF. WE'LL FOLLOW ALONG WITH YOU,AND MAKE FURTHER RECOMMENDATIONS NEEDED.
--- NOTE | 2018-08-19 16:11 | CP.CCUPN ---
<Idris Schwartz - Last Filed: 08/19/18 17:35> CCU Subjective - Physician Review Subjective (Free Text): PGY-1 ICU progress note for Dr Swanson service Patient is seen and examined at bedside. Patient is out of bed to chair. No acute event. Patient is off Bipap, in no distress, no complaints at this time. 08/19/18 17:35 Critical Care Time Spent (in minutes): 35 CCU Objective - Vital Signs / Intake & Output Vital Signs (Last 4 hours): Vital Signs Pulse Resp BP Pulse Ox 08/19/18 15:00 92 H 18 92 L 08/19/18 14:52 94 H 46 H 136/55 L 94 L 08/19/18 14:00 83 27 H 95 08/19/18 13:52 90 44 H 124/48 L 95 08/19/18 13:32 87 19 117/52 L 08/19/18 13:00 87 26 H 92 L 08/19/18 12:41 85 13 127/59 L 95 Intake and Output (Last 8hrs): Intake & Output 08/19/18 08/19/18 08/19/18 06:59 14:59 22:59 Intake Total 300 340 30 Output Total 1400 750 75 Balance -1100 -410 -45 Weight 127 lb Intake: Intake, IV Amount 300 340 30 Right Antecubital 300 340 30 Output: Urine 1400 750 75 Urethral (Jasso) 1400 750 75 Other: # Bowel Movements 0 0 - Physical Exam Head: Positive for: Atraumatic, Normocephalic Extroacular Muscles: Positive for: EOMI Conjunctiva: Positive for: Normal Mouth: Positive for: Moist Mucous Membranes Respiratory/Chest: Positive for: Clear to Auscultation. Negative for: Respiratory Distress, Wheezes, Rales, Rhonchi, Tachypneic Cardiovascular: Positive for: Regular Rate and Rhythm, Normal S1, S2 Abdomen: Positive for: Tenderness (Left lower quadrant tenderness to palpation ), Distention, Normal Bowel Sounds Upper Extremity: Positive for: Normal Inspection Lower Extremity: Positive for: Normal Inspection Neurological: Positive for: CN II-XII Intact Skin: Positive for: Warm, Dry, Normal Color Psychiatric: Positive for: Alert, Oriented x 3 - Medications Active Medications: Active Medications Generic Name Dose Route Start Last Admin Trade Name Freq PRN Reason Stop Dose Admin Acetaminophen 650 mg 08/17/18 17:58 08/19/18 08:55 Tylenol 325mg Tab PO 650 mg Q6 PRN Administration Fever >100.4 F Albuterol/Ipratropium 3 ml 08/17/18 20:00 08/19/18 13:19 Duoneb 3 Mg/0.5 Mg (3 Ml) Ud INH 3 ml RQ6 [facility] Administration Clopidogrel Bisulfate 75 mg 08/17/18 13:15 08/19/18 09:34 Plavix PO 75 mg DAILY [facility] Administration Diltiazem HCl 180 mg 08/17/18 13:15 08/19/18 09:34 Cardizem Cd PO 180 mg DAILY [facility] Administration Heparin Sodium (Porcine) 5,000 units 08/18/18 06:15 08/19/18 13:29 Heparin SC 5,000 units Q8 [facility] Administration Sodium Chloride 1,000 mls @ 30 mls/hr 08/17/18 16:58 08/18/18 17:05 Sodium Chloride 0.9% IV 30 mls/hr .Q24H [facility] Administration Aztreonam 500 mg/ Sodium 50 mls @ 100 mls/hr 08/19/18 16:00 Chloride IVPB Q12H [facility] Protocol Morphine Sulfate 2 mg 08/18/18 08:01 08/19/18 04:55 Morphine IVP 2 mg Q4 PRN Administration Pain, moderate (4-7) Pantoprazole Sodium 40 mg 08/18/18 10:00 08/19/18 09:34 Protonix Inj IVP 40 mg DAILY [facility] Administration Tamsulosin HCl 0.4 mg 08/18/18 10:00 08/19/18 09:35 Flomax PO 0.4 mg DAILY [facility] Administration - Patient Studies Lab Studies: Microbiology Studies 08/17/18 07:08 Blood Culture - Final Blood Escherichia Coli Gram Stain - Final 08/17/18 07:08 Blood Culture - Final Blood Escherichia Coli Gram Stain - Final 08/17/18 08:50 Urine Culture - Final Urine,Catheterized Escherichia Coli 08/17/18 21:51 MRSA Culture (Admit) - Final Naris MRSA NOT DETECTED Lab Studies 08/19/18 08/19/18 Range/Units 06:32 06:32 WBC 8.4 (4.8-10.8) K/uL RBC 2.96 L (4.40-5.90) Mil/uL Hgb 9.5 L (12.0-18.0) g/dL Hct 28.1 L (35.0-51.0) % MCV 94.9 H (80.0-94.0) fL MCH 31.9 H (27.0-31.0) pg MCHC 33.7 (33.0-37.0) g/dL RDW 14.8 H (11.5-14.5) % Plt Count 156 (130-400) K/uL MPV 8.7 (7.2-11.7) fL Neut % (Auto) 90.2 H (50.0-75.0) % Lymph % (Auto) 2.8 L (20.0-40.0) % Aurora % (Auto) 6.3 (0.0-10.0) % Eos % (Auto) 0.5 (0.0-4.0) % Baso % (Auto) 0.2 (0.0-2.0) % Neut # (Auto) 7.6 H (1.8-7.0) K/uL Lymph # (Auto) 0.2 L (1.0-4.3) K/uL Aurora # (Auto) 0.5 (0.0-0.8) K/uL Eos # (Auto) 0.0 (0.0-0.7) K/uL Baso # (Auto) 0.0 (0.0-0.2) K/uL Neutrophils % (Manual) 84 H (50-75) % Band Neutrophils % 1 (0-2) % Lymphocytes % (Manual) 5 L (20-40) % Reactive Lymphs % 1 H (0-0) % Monocytes % (Manual) 7 (0-10) % Eosinophils % (Manual) 2 (0-4) % Toxic Granulation Present Platelet Estimate Normal (NORMAL) Hypochromasia (manual) Slight Poikilocytosis (manual Slight Anisocytosis (manual) Slight Target Cells Slight Sodium 138 (132-148) mmol/L Potassium 3.2 L (3.6-5.2) mmol/L Chloride 102 (98-107) mmol/L Carbon Dioxide 26 (22-30) mmol/L Anion Gap 13 (10-20) BUN 62 H (9-20) mg/dL Creatinine 3.9 H (0.8-1.5) mg/dL Est GFR ( Amer) 18 Est GFR (Non-Af Amer) 15 Random Glucose 155 H (75-110) mg/dL Calcium 7.5 L (8.6-10.4) mg/dl Phosphorus 3.8 (2.5-4.5) mg/dL Magnesium 2.1 (1.6-2.3) mg/dL Total Bilirubin 0.7 (0.2-1.3) mg/dL AST 38 (17-59) U/L ALT 30 (21-72) U/L Alkaline Phosphatase 110 (38-126) U/L Total Protein 6.2 L (6.3-8.3) g/dL Albumin 3.2 L (3.5-5.0) g/dL Globulin 3.0 (2.2-3.9) gm/dL Albumin/Globulin Ratio 1.1 (1.0-2.1) Laboratory Results - last 24 hr 08/19/18 08/19/18 06:32 06:32 WBC 8.4 RBC 2.96 L Hgb 9.5 L Hct 28.1 L MCV 94.9 H MCH 31.9 H MCHC 33.7 RDW 14.8 H Plt Count 156 MPV 8.7 Neut % (Auto) 90.2 H Lymph % (Auto) 2.8 L Aurora % (Auto) 6.3 Eos % (Auto) 0.5 Baso % (Auto) 0.2 Neut # (Auto) 7.6 H Lymph # (Auto) 0.2 L Aurora # (Auto) 0.5 Eos # (Auto) 0.0 Baso # (Auto) 0.0 Neutrophils % (Manual) 84 H Band Neutrophils % 1 Lymphocytes % (Manual) 5 L Reactive Lymphs % 1 H Monocytes % (Manual) 7 Eosinophils % (Manual) 2 Toxic Granulation Present Platelet Estimate Normal Hypochromasia (manual) Slight Poikilocytosis (manual Slight Anisocytosis (manual) Slight Target Cells Slight Sodium 138 Potassium 3.2 L Chloride 102 Carbon Dioxide 26 Anion Gap 13 BUN 62 H Creatinine 3.9 H Est GFR ( Amer) 18 Est GFR (Non-Af Amer) 15 Random Glucose 155 H Calcium 7.5 L Phosphorus 3.8 Magnesium 2.1 Total Bilirubin 0.7 AST 38 ALT 30 Alkaline Phosphatase 110 Total Protein 6.2 L Albumin 3.2 L Globulin 3.0 Albumin/Globulin Ratio 1.1 Critical Care Progress Note - Nutrition Nutrition: Nutrition Category Date Time Status Heart Healthy Diet [DIET] Diets 08/17/18 Dinner Active Assessment/Plan - Assessment and Plan (Free Text) Plan: 77 year old patient with pmhx of HTN, prostate CA with radiation (last 08/11), BPH, chronic heart failure admitted for urine retention and malaise, transient BBP with increased QTC, found to have pleural edema with resp failure, and sepsis likely due to UTI and ZAINA. Neuro -AAOx3 - out of bed, sitting in chair Pulm - Duonebs PRN Q6 - d/c BIPAP - O2 NC Cardio - tele monitor - Plavix 75mg PO Daily - Cardizem 180 mg PO daily - Dr Mancuso - f/u recs - Troponin, first one, negative, second positive, third is negative GI - HHD - protonix Renal - Flomax 0.4 - NS @ 30cc/hr - CT abdomen/pelvis - bladder diverticulum - Urology consult - Dr Lewis ID - Gram negative madi - Urine and blood culture - + for E.Coli - no WBC, afebrile - MRSA not detected - zosyn IV Q6 d/c - aztreonam 500mg PPX GI - protonix DVT - Heparin SQ tylenol PRN Morphine 2mg IVP Q4 PRN for pain Plan discussed with Dr Sky Schwartz, PGY-1 - Date & Time Date: 08/19/18 Time: 16:00 <Les Swanson S - Last Filed: 08/19/18 18:34> CCU Objective - Vital Signs / Intake & Output Vital Signs (Last 4 hours): Vital Signs Temp Pulse Resp BP Pulse Ox 08/19/18 18:00 90 33 H 95 08/19/18 17:52 91 H 31 H 127/60 95 08/19/18 17:00 94 H 28 H 95 08/19/18 16:52 95 H 21 141/61 95 08/19/18 16:00 99.2 F 97 H 29 H 96 08/19/18 15:52 97 H 45 H 140/64 94 L 08/19/18 15:00 92 H 18 92 L 08/19/18 14:52 94 H 46 H 136/55 L 94 L Intake and Output (Last 8hrs): Intake & Output 08/19/18 08/19/18 08/19/18 06:59 14:59 22:59 Intake Total 300 340 190 Output Total 1400 750 460 Balance -1100 -410 -270 Weight 127 lb Intake: Intake, IV Amount 300 340 190 Right Antecubital 300 340 190 Output: Urine 1400 750 460 Urethral (Jasso) 1400 750 460 Other: # Bowel Movements 0 0 - Medications Active Medications: Active Medications Generic Name Dose Route Start Last Admin Trade Name Freq PRN Reason Stop Dose Admin Acetaminophen 650 mg 08/17/18 17:58 08/19/18 08:55 Tylenol 325mg Tab PO 650 mg Q6 PRN Administration Fever >100.4 F Albuterol/Ipratropium 3 ml 08/17/18 20:00 08/19/18 13:19 Duoneb 3 Mg/0.5 Mg (3 Ml) Ud INH 3 ml RQ6 [facility] Administration Clopidogrel Bisulfate 75 mg 08/17/18 13:15 08/19/18 09:34 Plavix PO 75 mg DAILY [facility] Administration Diltiazem HCl 180 mg 08/17/18 13:15 08/19/18 09:34 Cardizem Cd PO 180 mg DAILY [facility] Administration Heparin Sodium (Porcine) 5,000 units 08/18/18 06:15 08/19/18 13:29 Heparin SC 5,000 units Q8 [facility] Administration Sodium Chloride 1,000 mls @ 30 mls/hr 08/17/18 16:58 08/19/18 18:12 Sodium Chloride 0.9% IV Not Given .Q24H [facility] Aztreonam 500 mg/ Sodium 50 mls @ 100 mls/hr 08/19/18 16:00 08/19/18 16:27 Chloride IVPB 100 mls/hr Q12H [facility] Administration Protocol Morphine Sulfate 2 mg 08/18/18 08:01 08/19/18 18:19 Morphine IVP 2 mg Q4 PRN Administration Pain, moderate (4-7) Pantoprazole Sodium 40 mg 08/18/18 10:00 08/19/18 09:34 Protonix Inj IVP 40 mg DAILY [facility] Administration Tamsulosin HCl 0.4 mg 08/18/18 10:00 08/19/18 09:35 Flomax PO 0.4 mg DAILY [facility] Administration - Patient Studies Lab Studies: Microbiology Studies 08/17/18 07:08 Blood Culture - Final Blood Escherichia Coli Gram Stain - Final 08/17/18 07:08 Blood Culture - Final Blood Escherichia Coli Gram Stain - Final 08/17/18 08:50 Urine Culture - Final Urine,Catheterized Escherichia Coli 08/17/18 21:51 MRSA Culture (Admit) - Final Naris MRSA NOT DETECTED Lab Studies 08/19/18 08/19/18 Range/Units 06:32 06:32 WBC 8.4 (4.8-10.8) K/uL RBC 2.96 L (4.40-5.90) Mil/uL Hgb 9.5 L (12.0-18.0) g/dL Hct 28.1 L (35.0-51.0) % MCV 94.9 H (80.0-94.0) fL MCH 31.9 H (27.0-31.0) pg MCHC 33.7 (33.0-37.0) g/dL RDW 14.8 H (11.5-14.5) % Plt Count 156 (130-400) K/uL MPV 8.7 (7.2-11.7) fL Neut % (Auto) 90.2 H (50.0-75.0) % Lymph % (Auto) 2.8 L (20.0-40.0) % Aurora % (Auto) 6.3 (0.0-10.0) % Eos % (Auto) 0.5 (0.0-4.0) % Baso % (Auto) 0.2 (0.0-2.0) % Neut # (Auto) 7.6 H (1.8-7.0) K/uL Lymph # (Auto) 0.2 L (1.0-4.3) K/uL Aurora # (Auto) 0.5 (0.0-0.8) K/uL Eos # (Auto) 0.0 (0.0-0.7) K/uL Baso # (Auto) 0.0 (0.0-0.2) K/uL Neutrophils % (Manual) 84 H (50-75) % Band Neutrophils % 1 (0-2) % Lymphocytes % (Manual) 5 L (20-40) % Reactive Lymphs % 1 H (0-0) % Monocytes % (Manual) 7 (0-10) % Eosinophils % (Manual) 2 (0-4) % Toxic Granulation Present Platelet Estimate Normal (NORMAL) Hypochromasia (manual) Slight Poikilocytosis (manual Slight Anisocytosis (manual) Slight Target Cells Slight Sodium 138 (132-148) mmol/L Potassium 3.2 L (3.6-5.2) mmol/L Chloride 102 (98-107) mmol/L Carbon Dioxide 26 (22-30) mmol/L Anion Gap 13 (10-20) BUN 62 H (9-20) mg/dL Creatinine 3.9 H (0.8-1.5) mg/dL Est GFR ( Amer) 18 Est GFR (Non-Af Amer) 15 Random Glucose 155 H (75-110) mg/dL Calcium 7.5 L (8.6-10.4) mg/dl Phosphorus 3.8 (2.5-4.5) mg/dL Magnesium 2.1 (1.6-2.3) mg/dL Total Bilirubin 0.7 (0.2-1.3) mg/dL AST 38 (17-59) U/L ALT 30 (21-72) U/L Alkaline Phosphatase 110 (38-126) U/L Total Protein 6.2 L (6.3-8.3) g/dL Albumin 3.2 L (3.5-5.0) g/dL Globulin 3.0 (2.2-3.9) gm/dL Albumin/Globulin Ratio 1.1 (1.0-2.1) Laboratory Results - last 24 hr 08/19/18 08/19/18 06:32 06:32 WBC 8.4 RBC 2.96 L Hgb 9.5 L Hct 28.1 L MCV 94.9 H MCH 31.9 H MCHC 33.7 RDW 14.8 H Plt Count 156 MPV 8.7 Neut % (Auto) 90.2 H Lymph % (Auto) 2.8 L Aurora % (Auto) 6.3 Eos % (Auto) 0.5 Baso % (Auto) 0.2 Neut # (Auto) 7.6 H Lymph # (Auto) 0.2 L Aurora # (Auto) 0.5 Eos # (Auto) 0.0 Baso # (Auto) 0.0 Neutrophils % (Manual) 84 H Band Neutrophils % 1 Lymphocytes % (Manual) 5 L Reactive Lymphs % 1 H Monocytes % (Manual) 7 Eosinophils % (Manual) 2 Toxic Granulation Present Platelet Estimate Normal Hypochromasia (manual) Slight Poikilocytosis (manual Slight Anisocytosis (manual) Slight Target Cells Slight Sodium 138 Potassium 3.2 L Chloride 102 Carbon Dioxide 26 Anion Gap 13 BUN 62 H Creatinine 3.9 H Est GFR ( Amer) 18 Est GFR (Non-Af Amer) 15 Random Glucose 155 H Calcium 7.5 L Phosphorus 3.8 Magnesium 2.1 Total Bilirubin 0.7 AST 38 ALT 30 Alkaline Phosphatase 110 Total Protein 6.2 L Albumin 3.2 L Globulin 3.0 Albumin/Globulin Ratio 1.1 Critical Care Progress Note - Nutrition Nutrition: Nutrition Category Date Time Status Heart Healthy Diet [DIET] Diets 08/17/18 Dinner Active Attending/Attestation - Attestation I have personally seen and examined this patient.: Yes I have fully participated in the care of the patient.: Yes I have reviewed all pertinent clinical information: Yes Notes (Text): 08/19/18 18:34 Patient seen and examined in the intensive care unit. Patient is off BiPAP Continue antibiotics for bacteremia and urinary tract infection
[2018-08-19] MEDS: Sodium Chloride 0.9% 1,000 ML IV SCH (18:12)
--- NOTE | 2018-08-19 18:47 | CP.PCM.PN ---
Subjective - Date & Time of Evaluation Date of Evaluation: 08/19/18 Time of Evaluation: 18:46 - Subjective Subjective: CHIEF COMPLAINTS TODAY : AFEBRILE, OFF BIPAP, LESS DYSPNEIC C/O CHILLS ROS. HEENT : N. Resp : LESS SOB/ NO wheezing, +VE COUGH Cardio : No CP, PND orthopnea GI : +VE SUPRAPUBIC PAIN, NO n/v CAMPUS ADMINISTRATOR : No headache , focal deficit. Musculoskel : N Ext. : Pedal pulses intact, no edema or calf pain Derm : N Psych : N. PE. Pt. is alert awake in no distress. V.S As noted in the chart Head ,ear nose,throat and eyes : Normal. Neck : Supple with normal carotids. Lungs: B/L RALES Heart : S1 & S2 normal . . No murmur. S4 + Abd : Soft , MILDLY DISTENDED,LOWER ABDOMINAL DISCOMFORT with normal bowel sounds. Neuro : Moves all ext. with no localized deficit. Ext : No edema with intact pulses. Neg. calf tenderness Derm : No rashes or decubitus ulcer. Radiology/Labs REVIEWED. BLOOD CULTURE +VE E. COLI -HIGGINBOTHAM-SENSITIVE URINE CULTURE +VE E. COLI. Objective - Vital Signs/Intake and Output Vital Signs (last 24 hours): Temp Pulse Resp BP Pulse Ox 99.2 F 90 33 H 127/60 95 08/19/18 16:00 08/19/18 18:00 08/19/18 18:00 08/19/18 17:52 08/19/18 18:00 Intake and Output: 08/19/18 08/19/18 06:59 18:59 Intake Total 420 530 Output Total 1400 1210 Balance -980 -680 - Medications Medications: Current Medications Acetaminophen (Tylenol 325mg Tab) 650 mg PO Q6 PRN PRN Reason: Fever >100.4 F Last Admin: 08/19/18 08:55 Dose: 650 mg Albuterol/Ipratropium (Duoneb 3 Mg/0.5 Mg (3 Ml) Ud) 3 ml INH RQ6 [facility] Last Admin: 08/19/18 13:19 Dose: 3 ml Clopidogrel Bisulfate (Plavix) 75 mg PO DAILY [facility] Last Admin: 08/19/18 09:34 Dose: 75 mg Diltiazem HCl (Cardizem Cd) 180 mg PO DAILY [facility] Last Admin: 08/19/18 09:34 Dose: 180 mg Heparin Sodium (Porcine) (Heparin) 5,000 units SC Q8 [facility] Last Admin: 08/19/18 13:29 Dose: 5,000 units Sodium Chloride (Sodium Chloride 0.9%) 1,000 mls @ 30 mls/hr IV .Q24H [facility] Last Admin: 08/19/18 18:12 Dose: Not Given Aztreonam 500 mg/ Sodium (Chloride) 50 mls @ 100 mls/hr IVPB Q12H [facility]; Protocol Last Admin: 08/19/18 16:27 Dose: 100 mls/hr Morphine Sulfate (Morphine) 2 mg IVP Q4 PRN PRN Reason: Pain, moderate (4-7) Last Admin: 08/19/18 18:19 Dose: 2 mg Pantoprazole Sodium (Protonix Inj) 40 mg IVP DAILY [facility] Last Admin: 08/19/18 09:34 Dose: 40 mg Tamsulosin HCl (Flomax) 0.4 mg PO DAILY [facility] Last Admin: 08/19/18 09:35 Dose: 0.4 mg - Labs Labs: 08/19/18 06:32 08/19/18 06:32 PT 10.2 SECONDS (9.7-12.2) 08/17/18 07:39 INR 0.9 08/17/18 07:39 APTT 30 SECONDS (21-34) 08/17/18 07:39 Assessment and Plan (1) Gram-negative sepsis Status: Acute (2) Acute renal failure Status: Acute (3) Respiratory failure Status: Acute (4) Urinary retention Status: Acute (5) Anxiety Status: Acute - Assessment and Plan (Free Text) Plan: PLAN; INCREASE IV AZACTAM 500 MG EVERY 12 HOURLY 08/18 BLOOD CULTURES POSITIVE FOR ESCHERICHIA COLI -HIGGINBOTHAM SENSITIVE. -CHECK 2 D ECHO FOR VEGS/ LVEF /PERICARDIAL EFFUSION - F/U RENAL FUNCTIONS CLOSELY. *CASE DISCUSSED WITH FAMILY -SON AT BEDSIDE. CASE DISCUSSED W STAFF /AND HUMAN SERVICE COORDINATOR DR VALENCIA.
--- NOTE | 2018-08-19 21:33 | CP.PCM.PN ---
Subjective - Date & Time of Evaluation Date of Evaluation: 08/19/18 Time of Evaluation: 21:15 - Subjective Subjective: dictated Objective - Vital Signs/Intake and Output Vital Signs (last 24 hours): Temp Pulse Resp BP Pulse Ox 99.2 F 98 H 24 131/58 L 94 L 08/19/18 20:00 08/19/18 21:00 08/19/18 21:00 08/19/18 20:51 08/19/18 21:00 Intake and Output: 08/19/18 08/20/18 18:59 06:59 Intake Total 530 90 Output Total 1210 Balance -680 90 - Medications Medications: Current Medications Acetaminophen (Tylenol 325mg Tab) 650 mg PO Q6 PRN PRN Reason: Fever >100.4 F Last Admin: 08/19/18 08:55 Dose: 650 mg Albuterol/Ipratropium (Duoneb 3 Mg/0.5 Mg (3 Ml) Ud) 3 ml INH RQ6 [facility] Last Admin: 08/19/18 19:02 Dose: 3 ml Clopidogrel Bisulfate (Plavix) 75 mg PO DAILY [facility] Last Admin: 08/19/18 09:34 Dose: 75 mg Diltiazem HCl (Cardizem Cd) 180 mg PO DAILY [facility] Last Admin: 08/19/18 09:34 Dose: 180 mg Heparin Sodium (Porcine) (Heparin) 5,000 units SC Q8 [facility] Last Admin: 08/19/18 21:04 Dose: 5,000 units Sodium Chloride (Sodium Chloride 0.9%) 1,000 mls @ 30 mls/hr IV .Q24H [facility] Last Admin: 08/19/18 18:12 Dose: Not Given Aztreonam 500 mg/ Sodium (Chloride) 50 mls @ 100 mls/hr IVPB Q12H [facility]; Protocol Last Admin: 08/19/18 16:27 Dose: 100 mls/hr Morphine Sulfate (Morphine) 2 mg IVP Q4 PRN PRN Reason: Pain, moderate (4-7) Last Admin: 08/19/18 18:19 Dose: 2 mg Pantoprazole Sodium (Protonix Inj) 40 mg IVP DAILY [facility] Last Admin: 08/19/18 09:34 Dose: 40 mg Tamsulosin HCl (Flomax) 0.4 mg PO DAILY [facility] Last Admin: 08/19/18 09:35 Dose: 0.4 mg - Labs Labs: 08/19/18 06:32 08/19/18 06:32 PT 10.2 SECONDS (9.7-12.2) 08/17/18 07:39 INR 0.9 08/17/18 07:39 APTT 30 SECONDS (21-34) 08/17/18 07:39
--- NOTE | 2018-08-19 22:24 | CARD ---
APPROVED REPORT Date of service: 08/18/2018 EXAM: Two-dimensional and M-mode echocardiogram with Doppler and color Doppler. Other Information Quality : GoodRhythm : 2D DIMENSIONS IVSd0.7 (0.7-1.1cm)LVDd4.1 (3.9-5.9cm) PWd0.8 (0.7-1.1cm)LA Pdqhsa72 (18-58mL) LVDs2.4 (2.5-4.0cm)FS (%) 42.0 % LVEF (%)73.5 (>50%)LVEF (Webster's)67.51 % M-Mode DIMENSIONS Left Atrium (MM)3.02 (2.5-4.0cm)IVSd0.73 (0.7-1.1cm) Aortic Root3.54 (2.2-3.7cm)LVDd3.95 (4.0-5.6cm) Aortic Cusp Exc.1.88 (1.5-2.0cm)PWd0.80 (0.7-1.1cm) FS (%) 41 %LVDs2.32 (2.0-3.8cm) LVEF (%)73 (>50%) Mitral Valve MV E Opbnwwyz425.4cm/sMV A Zjblraar551.0cm/sE/A ratio1.1 TDI Lateral E' Peak V11.64cm/sMedial E' Peak V9.64cm/sE/Lateral E'10.4 E/Medial E'12.6 Tricuspid Valve TR Peak Ptbvrpcm600cl/sTR Peak Gr.[id number] LEFT VENTRICLE The left ventricle is normal size. There is normal left ventricular wall thickness. Left ventricle systolic function is normal. The Ejection Fraction is >70%. There is normal LV segmental wall motion. The left ventricular diastolic function is normal. No left ventricle thrombus noted on this study. RIGHT VENTRICLE The right ventricle is normal size. The right ventricular systolic function is normal. ATRIA The left atrium size is normal. The right atrium size is normal. AORTIC VALVE The aortic valve is trileaflet. No aortic regurgitation is present. There is no aortic valvular stenosis. There is no aortic valvular vegetation. MITRAL VALVE Mitral annular calcification is mild. There is no evidence of mitral valve prolapse. There is no mitral valve stenosis. Mitral regurgitation is mild. TRICUSPID VALVE The tricuspid valve is normal in structure. There is mild to moderate tricuspid regurgitation. Right ventricular systolic pressure is estimated at 40-50 mmHg. There is moderate pulmonary hypertension. There is no tricuspid valve prolapse or vegetation. There is no tricuspid valve stenosis. PULMONIC VALVE The pulmonic valve is not well visualized. There is mild pulmonic valvular regurgitation. GREAT VESSELS The aortic root is normal in size. The IVC is normal in size and collapses >50% with inspiration. PERICARDIAL EFFUSION There is no pericardial effusion. There is no pleural effusion. <Conclusion> The left ventricle is normal size. Left ventricle systolic function is normal. The Ejection Fraction is >70%. The left ventricular diastolic function is normal. The right ventricle is normal size. The right ventricular systolic function is normal. The left atrium size is normal. The right atrium size is normal. Mitral regurgitation is mild. There is mild to moderate tricuspid regurgitation. There is moderate pulmonary hypertension. There is mild pulmonic valvular regurgitation.
[2018-08-20] MEDS: Albuterol-Ipratrop 3 mg / 0.5 (3 ml) UD INH SCH ×3 (01:47→13:59)
--- NOTE | 2018-08-20 02:25 | PN ---
DATE: 08/19/2018 SUBJECTIVE: The patient's BUN and creatinine is improving. Today the patient is able to breathe on his own. He is not on BiPAP. He is feeling better. He is afebrile. His blood cultures are positive. He is on antibiotic. Seen by Infectious Disease. No nausea or vomiting and he is able to talk. PHYSICAL EXAMINATION: VITAL SIGNS: Blood pressure 131/58, pulse 98, respiratory rate 24, temperature 99.2. LUNGS: Bilateral scattered rales and rhonchi. CARDIOVASCULAR SYSTEM: S1 and S2 regular. ABDOMEN: Soft and nontender. Bowel sounds are positive. ASSESSMENT: 1. Acute obstructive uropathy with elevated blood urea nitrogen and creatinine, low potassium. The patient is on intravenous fluid, potassium replacement and the patient has a Jasso in place and being seen by Urology. 2. Hypertension. 3. Acute on chronic kidney disease. 4. Anemia of chronic disease. 5. Prostate cancer. PLAN: Continue to monitor the patient. Monitor the patient's oxygenation. Wily Liao MD
[2018-08-20 06:16] LABS: BASO % 0.2 % (0.0-2.0); EOS # 0.1 K/uL (0.0-0.7); EOS % 0.7 % (0.0-4.0); HEMOGLOBIN 9.8 g/dL (12.0-18.0); LYMPH # 0.3 K/uL (1.0-4.3); LYMPH % 3.7 % (20.0-40.0); MEAN CELL VOLUME 94.5 fL (80.0-94.0); MEAN CORPUSCULAR HEMOGLOBIN 32.1 pg (27.0-31.0); MEAN PLATELET VOLUME 8.7 fL (7.2-11.7); MONO # 0.7 K/uL (0.0-0.8); MONO % 9.2 % (0.0-10.0); NEUT # 6.8 K/uL (1.8-7.0); NEUT % 86.2 % (50.0-75.0); PLATELET COUNT 180 K/uL (130-400); RBC 3.05 Mil/uL (4.40-5.90); RED CELL DISTRIBUTION WIDTH 14.6 % (11.5-14.5); WHITE BLOOD COUNT 7.9 K/uL (4.8-10.8)
[2018-08-20 06:25] LABS: ALBUMIN 3.3 g/dL (3.5-5.0); CALCIUM 7.8 mg/dl (8.6-10.4)
[2018-08-20 08:26] LABS: BANDS 1 % (0-2); BASOPHIL 1 % (0-2); LYMPHOCYTE 6 % (20-40); MONOCYTE 7 % (0-10); NEUTROPHIL 84 % (50-75); PLATELET ESTIMATE NORMAL (NORMAL); REACTIVE LYMPHOCYTES 1 % (0-0); TOTAL CELLS COUNTED 100
[2018-08-20 08:27] LABS: ANISOCYTOSIS SLIGHT; HYPOCHROMIC SLIGHT; OVALOCYTES SLIGHT; POIKILOCYTOSIS SLIGHT
[2018-08-20] MEDS: diltiaZEM 180 mg/24 Hours CD Cap PO SCH (10:20)
--- NOTE | 2018-08-20 11:50 | CP.PCM.PN ---
Subjective - Date & Time of Evaluation Date of Evaluation: 08/20/18 Time of Evaluation: 11:50 - Subjective Subjective: CHIEF COMPLAINTS TODAY : AFEBRILE, C/O FEELING WEAK .pATIENT FOR TRANSFER TO THE FLOOR. ROS. HEENT : N. Resp : LESS SOB/ NO wheezing, +VE COUGH Cardio : No CP, PND orthopnea GI : +VE SUPRAPUBIC PAIN, NO n/v COMPUTER SYSTEM VALIDATION SPECIALIST : No headache , focal deficit. Musculoskel : N Ext. : Pedal pulses intact, no edema or calf pain Derm : N Psych : N. PE. Pt. is alert awake in no distress. V.S As noted in the chart Head ,ear nose,throat and eyes : Normal. Neck : Supple with normal carotids. Lungs: B/L RALES Heart : S1 & S2 normal . . No murmur. S4 + Abd : Soft , MILDLY DISTENDED,LOWER ABDOMINAL DISCOMFORT with normal bowel sounds. Neuro : Moves all ext. with no localized deficit. Ext : No edema with intact pulses. Neg. calf tenderness Derm : No rashes or decubitus ulcer. Radiology/Labs REVIEWED. wbc 7.9 cREATININE 3.1/bun 45 IMPROVING. BLOOD CULTURE +VE E. COLI -[place]-SENSITIVE URINE CULTURE +VE E. COLI. Objective - Vital Signs/Intake and Output Vital Signs (last 24 hours): Temp Pulse Resp BP Pulse Ox 98.3 F 87 19 148/77 96 08/20/18 08:00 08/20/18 11:00 08/20/18 11:00 08/20/18 11:00 08/20/18 11:00 Intake and Output: 08/20/18 08/20/18 06:59 18:59 Intake Total 360 300 Output Total 1550 Balance -1190 300 - Medications Medications: Current Medications Acetaminophen (Tylenol 325mg Tab) 650 mg PO Q6 PRN PRN Reason: Fever >100.4 F Last Admin: 08/20/18 02:17 Dose: 650 mg Albuterol/Ipratropium (Duoneb 3 Mg/0.5 Mg (3 Ml) Ud) 3 ml INH RQ6 [facility] Last Admin: 08/20/18 07:56 Dose: 3 ml Clopidogrel Bisulfate (Plavix) 75 mg PO DAILY [facility] Last Admin: 08/20/18 10:20 Dose: 75 mg Diltiazem HCl (Cardizem Cd) 180 mg PO DAILY [facility] Last Admin: 08/20/18 10:20 Dose: 180 mg Heparin Sodium (Porcine) (Heparin) 5,000 units SC Q8 [facility] Last Admin: 08/20/18 05:22 Dose: 5,000 units Sodium Chloride (Sodium Chloride 0.9%) 1,000 mls @ 30 mls/hr IV .Q24H [facility] Last Admin: 08/19/18 18:12 Dose: Not Given Aztreonam 500 mg/ Sodium (Chloride) 50 mls @ 100 mls/hr IVPB Q12H [facility]; Protocol Last Admin: 08/20/18 03:15 Dose: 100 mls/hr Morphine Sulfate (Morphine) 2 mg IVP Q4 PRN PRN Reason: Pain, moderate (4-7) Last Admin: 08/19/18 22:30 Dose: 2 mg Pantoprazole Sodium (Protonix Inj) 40 mg IVP DAILY [facility] Last Admin: 08/20/18 10:21 Dose: 40 mg Tamsulosin HCl (Flomax) 0.4 mg PO DAILY [facility] Last Admin: 08/20/18 10:20 Dose: 0.4 mg - Labs Labs: 08/20/18 05:47 08/20/18 05:47 PT 10.2 SECONDS (9.7-12.2) 08/17/18 07:39 INR 0.9 08/17/18 07:39 APTT 30 SECONDS (21-34) 08/17/18 07:39 Assessment and Plan (1) Gram-negative sepsis Status: Acute (2) Acute renal failure Status: Acute (3) Respiratory failure Status: Acute (4) Urinary retention Status: Acute (5) Anxiety Status: Acute - Assessment and Plan (Free Text) Plan: CONTINUE IV AZACTAM 500 MG EVERY 12 HOURLY 08/18 BLOOD CULTURES POSITIVE FOR ESCHERICHIA COLI -HIGGINBOTHAM SENSITIVE. - 2 D ECHO FOR VEGS/ LVEF /PERICARDIAL EFFUSION-DONE fOLLOW-UP REPORT - F/U RENAL FUNCTIONS CLOSELY. CASE DISCUSSED W STAFF.
[2018-08-20] MEDS: Sodium Chloride 0.9% 1,000 ML IV SCH (17:21)
--- NOTE | 2018-08-20 23:04 | CP.PCM.PN ---
Subjective - Date & Time of Evaluation Date of Evaluation: 08/20/18 Time of Evaluation: 16:02 - Subjective Subjective: dictated Objective - Vital Signs/Intake and Output Vital Signs (last 24 hours): Temp Pulse Resp BP Pulse Ox 97.9 F 82 20 147/74 93 L 08/20/18 17:52 08/20/18 18:00 08/20/18 17:52 08/20/18 17:52 08/20/18 17:52 Intake and Output: 08/20/18 08/21/18 18:59 06:59 Intake Total 500 Output Total 1350 Balance -850 - Medications Medications: Current Medications Acetaminophen (Tylenol 325mg Tab) 650 mg PO Q6 PRN PRN Reason: Fever >100.4 F Last Admin: 08/20/18 02:17 Dose: 650 mg Albuterol/Ipratropium (Duoneb 3 Mg/0.5 Mg (3 Ml) Ud) 3 ml INH RQ6 [facility] Last Admin: 08/20/18 13:59 Dose: Not Given Clopidogrel Bisulfate (Plavix) 75 mg PO DAILY [facility] Last Admin: 08/20/18 10:20 Dose: 75 mg Diltiazem HCl (Cardizem Cd) 180 mg PO DAILY [facility] Last Admin: 08/20/18 10:20 Dose: 180 mg Heparin Sodium (Porcine) (Heparin) 5,000 units SC Q8 [facility] Last Admin: 08/20/18 21:35 Dose: 5,000 units Sodium Chloride (Sodium Chloride 0.9%) 1,000 mls @ 30 mls/hr IV .Q24H [facility] Last Admin: 08/20/18 17:21 Dose: Not Given Aztreonam 500 mg/ Sodium (Chloride) 50 mls @ 100 mls/hr IVPB Q12H [facility]; Protocol Last Admin: 08/20/18 16:53 Dose: 100 mls/hr Morphine Sulfate (Morphine) 2 mg IVP Q4 PRN PRN Reason: Pain, moderate (4-7) Last Admin: 08/19/18 22:30 Dose: 2 mg Pantoprazole Sodium (Protonix Inj) 40 mg IVP DAILY [facility] Last Admin: 08/20/18 10:21 Dose: 40 mg Tamsulosin HCl (Flomax) 0.4 mg PO DAILY [facility] Last Admin: 08/20/18 10:20 Dose: 0.4 mg - Labs Labs: 08/20/18 05:47 08/20/18 05:47 PT 10.2 SECONDS (9.7-12.2) 08/17/18 07:39 INR 0.9 08/17/18 07:39 APTT 30 SECONDS (21-34) 08/17/18 07:39
[2018-08-21] MEDS: Albuterol-Ipratrop 3 mg / 0.5 (3 ml) UD INH SCH ×4 (01:27→19:54)
--- NOTE | 2018-08-21 02:56 | PN ---
DATE: 08/20/2018 SUBJECTIVE: The patient, Ellis, is improving. His BUN and creatinine are coming down. He is afebrile. His blood cultures are positive. He is on antibiotics. He is being seen by ID. He denies any nausea, vomiting, diarrhea. PHYSICAL EXAMINATION: VITAL SIGNS: Blood pressure 147/74, pulse 64, respiratory rate 20, temperature 97.9. LUNGS: Clear. No rales. No rhonchi. CARDIOVASCULAR SYSTEM: S1 and S2 regular. ABDOMEN: Soft, nontender. Bowel sounds are positive. ASSESSMENT: 1. Obstructive uropathy due to prostate cancer with Jasso's and the patient's BUN and creatinine are going down. 2. Congestive heart failure 3. Hypertension. 4. Prostate cancer. 5. Anemia . PLAN: Continue IV fluids, BUN and creatinine, monitor the patient. Wily Liao MD
[2018-08-21] MEDS: diltiaZEM 180 mg/24 Hours CD Cap PO SCH (10:23)
--- NOTE | 2018-08-21 20:39 | CP.PCM.PN ---
Subjective - Date & Time of Evaluation Date of Evaluation: 08/21/18 Time of Evaluation: 09:05 - Subjective Subjective: dictated Objective - Vital Signs/Intake and Output Vital Signs (last 24 hours): Temp Pulse Resp BP Pulse Ox 98.4 F 81 20 128/69 97 08/21/18 16:00 08/21/18 16:00 08/21/18 16:00 08/21/18 16:00 08/21/18 16:00 Intake and Output: 08/21/18 08/22/18 18:59 06:59 Intake Total 240 Output Total 800 Balance -560 - Medications Medications: Current Medications Acetaminophen (Tylenol 325mg Tab) 650 mg PO Q6 PRN PRN Reason: Fever >100.4 F Last Admin: 08/21/18 10:56 Dose: 650 mg Albuterol/Ipratropium (Duoneb 3 Mg/0.5 Mg (3 Ml) Ud) 3 ml INH RQ6 [facility] Last Admin: 08/21/18 19:54 Dose: Not Given Clopidogrel Bisulfate (Plavix) 75 mg PO DAILY [facility] Last Admin: 08/21/18 10:23 Dose: 75 mg Diltiazem HCl (Cardizem Cd) 180 mg PO DAILY [facility] Last Admin: 08/21/18 10:23 Dose: 180 mg Docusate Sodium (Colace) 100 mg PO TID [facility] Heparin Sodium (Porcine) (Heparin) 5,000 units SC Q8 [facility] Last Admin: 08/21/18 14:07 Dose: 5,000 units Sodium Chloride (Sodium Chloride 0.9%) 1,000 mls @ 30 mls/hr IV .Q24H [facility] Last Admin: 08/20/18 17:21 Dose: Not Given Aztreonam 500 mg/ Sodium (Chloride) 50 mls @ 100 mls/hr IVPB Q12H [facility]; Protocol Last Admin: 08/21/18 15:59 Dose: 100 mls/hr Morphine Sulfate (Morphine) 2 mg IVP Q4 PRN PRN Reason: Pain, moderate (4-7) Last Admin: 08/19/18 22:30 Dose: 2 mg Pantoprazole Sodium (Protonix Inj) 40 mg IVP DAILY [facility] Last Admin: 08/21/18 10:23 Dose: 40 mg Polyethylene Glycol (Miralax) 17 gm PO DAILY [facility] Tamsulosin HCl (Flomax) 0.4 mg PO DAILY [facility] Last Admin: 08/21/18 10:23 Dose: 0.4 mg - Labs Labs: 08/20/18 05:47 08/20/18 05:47 PT 10.2 SECONDS (9.7-12.2) 08/17/18 07:39 INR 0.9 08/17/18 07:39 APTT 30 SECONDS (21-34) 08/17/18 07:39
--- NOTE | 2018-08-21 20:45 | CP.PCM.PN ---
Subjective - Date & Time of Evaluation Date of Evaluation: 08/21/18 Time of Evaluation: 20:45 - Subjective Subjective: CHIEF COMPLAINTS TODAY : AFEBRILE, FEELING BETTER C/O CONSTIPATION. NO BM SINCE ADMISSION SON AT BEDSIDE ROS. HEENT : N. Resp : LESS SOB/ NO wheezing, +VE COUGH Cardio : No CP, PND orthopnea GI : +VE SUPRAPUBIC PAIN, NO n/v REGULATION SUPERVISOR : No headache , focal deficit. Musculoskel : N Ext. : Pedal pulses intact, no edema or calf pain Derm : N Psych : N. PE. Pt. is alert awake in no distress. V.S As noted in the chart Head ,ear nose,throat and eyes : Normal. Neck : Supple with normal carotids. Lungs: B/L RALES Heart : S1 & S2 normal . . No murmur. S4 + Abd : Soft , MILDLY DISTENDED,LOWER ABDOMINAL DISCOMFORT with normal bowel sounds. Neuro : Moves all ext. with no localized deficit. Ext : No edema with intact pulses. Neg. calf tenderness Derm : No rashes or decubitus ulcer. Radiology/Labs REVIEWED. cREATININE 3.1/bun 45 IMPROVING. BLOOD CULTURE +VE E. COLI -HIG[place]BOTH[place]-SENSITIVE URINE CULTURE +VE E. COLI. Objective - Vital Signs/Intake and Output Vital Signs (last 24 hours): Temp Pulse Resp BP Pulse Ox 98.4 F 81 20 128/69 97 08/21/18 16:00 08/21/18 16:00 08/21/18 16:00 08/21/18 16:00 08/21/18 16:00 Intake and Output: 08/21/18 08/22/18 18:59 06:59 Intake Total 240 Output Total 800 Balance -560 - Medications Medications: Current Medications Acetaminophen (Tylenol 325mg Tab) 650 mg PO Q6 PRN PRN Reason: Fever >100.4 F Last Admin: 08/21/18 10:56 Dose: 650 mg Albuterol/Ipratropium (Duoneb 3 Mg/0.5 Mg (3 Ml) Ud) 3 ml INH RQ6 [facility] Last Admin: 08/21/18 19:54 Dose: Not Given Clopidogrel Bisulfate (Plavix) 75 mg PO DAILY [facility] Last Admin: 08/21/18 10:23 Dose: 75 mg Diltiazem HCl (Cardizem Cd) 180 mg PO DAILY [facility] Last Admin: 08/21/18 10:23 Dose: 180 mg Docusate Sodium (Colace) 100 mg PO TID [facility] Heparin Sodium (Porcine) (Heparin) 5,000 units SC Q8 [facility] Last Admin: 08/21/18 14:07 Dose: 5,000 units Sodium Chloride (Sodium Chloride 0.9%) 1,000 mls @ 30 mls/hr IV .Q24H [facility] Last Admin: 08/20/18 17:21 Dose: Not Given Aztreonam 500 mg/ Sodium (Chloride) 50 mls @ 100 mls/hr IVPB Q12H [facility]; Protocol Last Admin: 08/21/18 15:59 Dose: 100 mls/hr Morphine Sulfate (Morphine) 2 mg IVP Q4 PRN PRN Reason: Pain, moderate (4-7) Last Admin: 08/19/18 22:30 Dose: 2 mg Pantoprazole Sodium (Protonix Inj) 40 mg IVP DAILY [facility] Last Admin: 08/21/18 10:23 Dose: 40 mg Polyethylene Glycol (Miralax) 17 gm PO DAILY [facility] Tamsulosin HCl (Flomax) 0.4 mg PO DAILY [facility] Last Admin: 08/21/18 10:23 Dose: 0.4 mg - Labs Labs: 08/20/18 05:47 08/20/18 05:47 PT 10.2 SECONDS (9.7-12.2) 08/17/18 07:39 INR 0.9 08/17/18 07:39 APTT 30 SECONDS (21-34) 08/17/18 07:39 Assessment and Plan (1) Gram-negative sepsis Status: Acute (2) Acute renal failure Status: Acute (3) Respiratory failure Status: Acute (4) Urinary retention Status: Acute (5) Anxiety Status: Acute - Assessment and Plan (Free Text) Plan: CONTINUE IV AZACTAM 500 MG EVERY 12 HOURLY 08/18 BLOOD CULTURES POSITIVE FOR ESCHERICHIA COLI -HIGGINBOTHAM SENSITIVE. -F/U REPEAT BLOOD CULTURES LACTULOSE 30CC X 1 DOSE TODAY - F/U RENAL FUNCTIONS CLOSELY. CASE DISCUSSED W STAFF.
[2018-08-21] MEDS: POLYETHYLENE GLYCOL 3350 17 GM/Dose PACKET PO SCH (20:52)
[2018-08-21] MEDS: Sodium Chloride 0.9% 1,000 ML IV SCH (20:55)
[2018-08-22] MEDS: Albuterol-Ipratrop 3 mg / 0.5 (3 ml) UD INH SCH ×4 (01:34→19:05)
--- NOTE | 2018-08-22 01:40 | PN ---
DATE: 08/21/2018 SUBJECTIVE: Ellis is on IV antibiotics. He is doing well. He is afebrile. He feels better. His BUN and creatinine are coming down. He also has underlying chronic kidney disease. PHYSICAL EXAMINATION: VITAL SIGNS: Blood pressure 128/59, pulse 81, respiratory rate 20, temperature 98.4. LUNGS: Clear. CARDIOVASCULAR SYSTEM: S1 and S2 are regular. ABDOMEN: Soft. ASSESSMENT: 1. Obstructive uropathy with urinary tract infection with septicemia pansensitive Escherichia coli. 2. Obstructive uropathy, status post Jasso's. 3. Prostate cancer. 4. Hypertension. PLAN: Medical management. Jasso catheter. To discuss with Dr. Gleason about plan of care in terms of Jasso catheter. Wily Liao MD
[2018-08-22 07:36] LABS: BASO % 0.4 % (0.0-2.0); EOS # 0.1 K/uL (0.0-0.7); EOS % 0.8 % (0.0-4.0); HEMOGLOBIN 10.5 g/dL (12.0-18.0); LYMPH # 0.7 K/uL (1.0-4.3); LYMPH % 7.2 % (20.0-40.0); MEAN CELL VOLUME 94.1 fL (80.0-94.0); MEAN CORPUSCULAR HEMOGLOBIN 31.7 pg (27.0-31.0); MEAN CORPUSCULAR HGB CONC 33.7 g/dL (33.0-37.0); MEAN PLATELET VOLUME 8.2 fL (7.2-11.7); MONO # 1.3 K/uL (0.0-0.8); MONO % 13.9 % (0.0-10.0); NEUT # 7.5 K/uL (1.8-7.0); NEUT % 77.7 % (50.0-75.0); PLATELET COUNT 244 K/uL (130-400); RBC 3.32 Mil/uL (4.40-5.90); RED CELL DISTRIBUTION WIDTH 14.6 % (11.5-14.5); WHITE BLOOD COUNT 9.6 K/uL (4.8-10.8)
[2018-08-22 08:19] LABS: CALCIUM 8.3 mg/dl (8.6-10.4)
[2018-08-22] MEDS: diltiaZEM 180 mg/24 Hours CD Cap PO SCH (10:25)
[2018-08-22] MEDS: POLYETHYLENE GLYCOL 3350 17 GM/Dose PACKET PO SCH (10:31)
[2018-08-22 11:07] LABS: BANDS 6 % (0-2); LYMPHOCYTE 5 % (20-40); MONOCYTE 6 % (0-10); MYELOCYTE 1 % (0-0); NEUTROPHIL 80 % (50-75); REACTIVE LYMPHOCYTES 2 % (0-0); TOTAL CELLS COUNTED 100
[2018-08-22 11:12] LABS: PLATELET ESTIMATE NORMAL (NORMAL)
--- NOTE | 2018-08-22 14:20 | CP.PCM.PN ---
Subjective - Date & Time of Evaluation Date of Evaluation: 08/22/18 Time of Evaluation: 14:20 Objective - Vital Signs/Intake and Output Vital Signs (last 24 hours): Temp Pulse Resp BP Pulse Ox 97.3 F L 97 H 18 153/76 H 99 08/22/18 07:00 08/22/18 07:00 08/22/18 07:00 08/22/18 07:00 08/22/18 07:00 Intake and Output: 08/22/18 08/22/18 06:59 18:59 Intake Total 610 Output Total 700 Balance -90 - Medications Medications: Current Medications Acetaminophen (Tylenol 325mg Tab) 650 mg PO Q6 PRN PRN Reason: Fever >100.4 F Last Admin: 08/21/18 10:56 Dose: 650 mg Albuterol/Ipratropium (Duoneb 3 Mg/0.5 Mg (3 Ml) Ud) 3 ml INH RQ6 [facility] Last Admin: 08/22/18 13:27 Dose: 3 ml Clopidogrel Bisulfate (Plavix) 75 mg PO DAILY [facility] Last Admin: 08/22/18 10:25 Dose: 75 mg Diltiazem HCl (Cardizem Cd) 180 mg PO DAILY [facility] Last Admin: 08/22/18 10:25 Dose: 180 mg Docusate Sodium (Colace) 100 mg PO TID [facility] Last Admin: 08/22/18 13:53 Dose: Not Given Heparin Sodium (Porcine) (Heparin) 5,000 units SC Q8 [facility] Last Admin: 08/22/18 06:45 Dose: 5,000 units Sodium Chloride (Sodium Chloride 0.9%) 1,000 mls @ 30 mls/hr IV .Q24H [facility] Last Admin: 08/21/18 20:55 Dose: 30 mls/hr Aztreonam 500 mg/ Sodium (Chloride) 50 mls @ 100 mls/hr IVPB Q12H [facility]; Protocol Last Admin: 08/22/18 03:36 Dose: 100 mls/hr Morphine Sulfate (Morphine) 2 mg IVP Q4 PRN PRN Reason: Pain, moderate (4-7) Last Admin: 08/19/18 22:30 Dose: 2 mg Pantoprazole Sodium (Protonix Inj) 40 mg IVP DAILY [facility] Last Admin: 08/22/18 10:26 Dose: 40 mg Polyethylene Glycol (Miralax) 17 gm PO DAILY [facility] Last Admin: 08/22/18 10:31 Dose: Not Given Tamsulosin HCl (Flomax) 0.4 mg PO DAILY [facility] Last Admin: 08/22/18 10:25 Dose: 0.4 mg - Labs Labs: 08/22/18 07:16 08/22/18 07:16 PT 10.2 SECONDS (9.7-12.2) 08/17/18 07:39 INR 0.9 08/17/18 07:39 APTT 30 SECONDS (21-34) 08/17/18 07:39 Assessment and Plan (1) Gram-negative sepsis Status: Acute (2) Acute renal failure Status: Acute (3) Respiratory failure Status: Acute (4) Urinary retention Status: Acute (5) Anxiety Status: Acute
--- NOTE | 2018-08-22 19:02 | CP.PCM.PN ---
Subjective - Date & Time of Evaluation Date of Evaluation: 08/22/18 Time of Evaluation: 20:00 - Subjective Subjective: dictated Objective - Vital Signs/Intake and Output Vital Signs (last 24 hours): Temp Pulse Resp BP Pulse Ox 97.3 F L 97 H 18 153/76 H 99 08/22/18 07:00 08/22/18 07:00 08/22/18 07:00 08/22/18 07:00 08/22/18 07:00 - Medications Medications: Current Medications Acetaminophen (Tylenol 325mg Tab) 650 mg PO Q6 PRN PRN Reason: Fever >100.4 F Last Admin: 08/21/18 10:56 Dose: 650 mg Albuterol/Ipratropium (Duoneb 3 Mg/0.5 Mg (3 Ml) Ud) 3 ml INH RQ6 [facility] Last Admin: 08/22/18 13:27 Dose: 3 ml Clopidogrel Bisulfate (Plavix) 75 mg PO DAILY [facility] Last Admin: 08/22/18 10:25 Dose: 75 mg Diltiazem HCl (Cardizem Cd) 180 mg PO DAILY [facility] Last Admin: 08/22/18 10:25 Dose: 180 mg Docusate Sodium (Colace) 100 mg PO TID [facility] Last Admin: 08/22/18 17:00 Dose: 100 mg Heparin Sodium (Porcine) (Heparin) 5,000 units SC Q8 [facility] Last Admin: 08/22/18 14:00 Dose: 5,000 units Sodium Chloride (Sodium Chloride 0.9%) 1,000 mls @ 30 mls/hr IV .Q24H [facility] Last Admin: 08/21/18 20:55 Dose: 30 mls/hr Aztreonam 500 mg/ Sodium (Chloride) 50 mls @ 100 mls/hr IVPB Q12H [facility]; Protocol Last Admin: 08/22/18 16:57 Dose: 100 mls/hr Morphine Sulfate (Morphine) 2 mg IVP Q4 PRN PRN Reason: Pain, moderate (4-7) Last Admin: 08/19/18 22:30 Dose: 2 mg Pantoprazole Sodium (Protonix Inj) 40 mg IVP DAILY [facility] Last Admin: 08/22/18 10:26 Dose: 40 mg Polyethylene Glycol (Miralax) 17 gm PO DAILY [facility] Last Admin: 08/22/18 10:31 Dose: Not Given Tamsulosin HCl (Flomax) 0.4 mg PO DAILY [facility] Last Admin: 08/22/18 10:25 Dose: 0.4 mg - Labs Labs: 08/22/18 07:16 08/22/18 07:16 PT 10.2 SECONDS (9.7-12.2) 08/17/18 07:39 INR 0.9 08/17/18 07:39 APTT 30 SECONDS (21-34) 08/17/18 07:39
[2018-08-22 19:36] VITALS: RESP 20
--- NOTE | 2018-08-23 00:56 | PN ---
DATE: 08/22/2018 SUBJECTIVE: The patient has a Jasso in place. The patient's blood cultures are positive for E. coli. The patient is on IV antibiotics. Reviewed blood cultures are negative. He is feeling better. PHYSICAL EXAMINATION: VITAL SIGNS: Blood pressure 126/51, pulse 82, respiratory rate 20, and temperature 97.8. LUNGS: Clear. LABORATORY DATA: WBC 11.6, hemoglobin 10.5, hematocrit 31.2, platelets 244. Sodium 141, potassium 3.8, chloride 98, bicarbonate 26. BUN 39, creatinine 2.4. ASSESSMENT AND PLAN: The patient is stable. Wily Liao MD
[2018-08-23] MEDS: Albuterol-Ipratrop 3 mg / 0.5 (3 ml) UD INH SCH ×2 (01:25→07:20)
[2018-08-23] MEDS: Morphine 4 MG/ML VIAL IVP PRN (03:50)
[2018-08-23 07:33] VITALS: BP 133/69; PULSE 75; TEMP 97.7; O2SAT 99
[2018-08-23 07:48] LABS: CALCIUM 8.3 mg/dl (8.6-10.4)
[2018-08-23] MEDS: POLYETHYLENE GLYCOL 3350 17 GM/Dose PACKET PO SCH (09:55)
[2018-08-23] MEDS: diltiaZEM 180 mg/24 Hours CD Cap PO SCH (09:55)
[2018-08-23 14:55] LABS: SQUAMOUS EPITHIAL < 1 /hpf (0-5); URINE BACTERIA RARE (<OCC); URINE BILIRUBIN NEGATIVE (NEGATIVE); URINE BLOOD 1+ (NEGATIVE); URINE CLARITY Clear (Clear); URINE COLOR Yellow (YELLOW); URINE GLUCOSE (UA) 1+ mg/dL (Normal); URINE LEUKOCYTE ESTERASE 3+ Leu/uL (Negative); URINE PROTEIN 1+ mg/dL (NEGATIVE); URINE UROBILINOGEN NORMAL mg/dL (0.2-1.0)
--- NOTE | 2018-08-23 16:54 | CP.PCM.PN ---
Objective - Vital Signs/Intake and Output Vital Signs (last 24 hours): Temp Pulse Resp BP Pulse Ox 97.7 F 75 20 133/69 99 08/23/18 07:00 08/23/18 07:00 08/23/18 07:00 08/23/18 07:00 08/23/18 07:00 Intake and Output: 08/23/18 08/23/18 06:59 18:59 Intake Total 560 Output Total 1200 Balance -640 - Labs Labs: 08/22/18 07:16 08/23/18 07:19 PT 10.2 SECONDS (9.7-12.2) 08/17/18 07:39 INR 0.9 08/17/18 07:39 APTT 30 SECONDS (21-34) 08/17/18 07:39 Assessment and Plan - Assessment and Plan (Free Text) Assessment: 77 year old male admitted with acute renal insufficiency and retention, s/p cysto and lopez placemnt, seen and examined.
--- NOTE | 2018-08-23 20:52 | CP.PCM.DIS ---
Provider - Provider Date of Admission: 08/17/18 08:31 Attending physician: Wily Liao MD Consults: 08/17/18 11:50 Cardiology Consult Routine Comment: Consulting Provider: Eren Mancuso Consulting Physician: Eren Mancuso Reason for Consult: EKG CHANGES 08/17/18 11:56 Physician Consult Routine Comment: Consulting Provider: Hanna Huynh Consulting Physician: Hanna Huynh Reason for Consult: DYSPNEA WITH EKG CHANGES 08/18/18 14:27 Urology Consult Routine Comment: Consulting Provider: Ryan Lewis Consulting Physician: Ryan Lewis Reason for Consult: bladder diverticulum 08/18/18 23:11 Infectious Disease Consult Routine Comment: Consulting Provider: Dominic Madden Consulting Physician: Dominic Madden Reason for Consult: sepsis Time Spent in preparation of Discharge (in minutes): 30 Hospital Course - Lab Results Lab Results: Micro Results 08/22/18 21:11 Urine,Catheterized Urine Culture - Final No Growth (<1,000 CFU/ML) 08/20/18 23:00 Blood-Venous Blood Culture - Preliminary NO GROWTH AFTER 48 HOURS 08/20/18 23:00 Blood-Venous Blood Culture - Preliminary NO GROWTH AFTER 48 HOURS 08/21/18 05:17 Naris MRSA Culture - Final MRSA NOT DETECTED 08/17/18 07:08 Blood Blood Culture - Final Escherichia Coli 08/17/18 07:08 Blood Gram Stain - Final 08/17/18 07:08 Blood Blood Culture - Final Escherichia Coli 08/17/18 07:08 Blood Gram Stain - Final 08/17/18 08:50 Urine,Catheterized Urine Culture - Final Escherichia Coli 08/17/18 21:51 Naris MRSA Culture (Admit) - Final MRSA NOT DETECTED Most Recent Lab Values WBC 9.6 K/uL (4.8-10.8) 08/22/18 07:16 RBC 3.32 Mil/uL (4.40-5.90) L 08/22/18 07:16 Hgb 10.5 g/dL (12.0-18.0) L 08/22/18 07:16 Hct 31.2 % (35.0-51.0) L 08/22/18 07:16 MCV 94.1 fL (80.0-94.0) H 08/22/18 07:16 MCH 31.7 pg (27.0-31.0) H 08/22/18 07:16 MCHC 33.7 g/dL (33.0-37.0) 08/22/18 07:16 RDW 14.6 % (11.5-14.5) H 08/22/18 07:16 Plt Count 244 K/uL (130-400) 08/22/18 07:16 MPV 8.2 fL (7.2-11.7) 08/22/18 07:16 Neut % (Auto) 77.7 % (50.0-75.0) H 08/22/18 07:16 Lymph % (Auto) 7.2 % (20.0-40.0) L 08/22/18 07:16 [place] % (Auto) 13.9 % (0.0-10.0) H 08/22/18 07:16 Eos % (Auto) 0.8 % (0.0-4.0) 08/22/18 07:16 Baso % (Auto) 0.4 % (0.0-2.0) 08/22/18 07:16 Neut # (Auto) 7.5 K/uL (1.8-7.0) H 08/22/18 07:16 Lymph # (Auto) 0.7 K/uL (1.0-4.3) L 08/22/18 07:16 [place] # (Auto) 1.3 K/uL (0.0-0.8) H 08/22/18 07:16 Eos # (Auto) 0.1 K/uL (0.0-0.7) 08/22/18 07:16 Baso # (Auto) 0.0 K/uL (0.0-0.2) 08/22/18 07:16 Neutrophils % (Manual) 80 % (50-75) H 08/22/18 07:16 Band Neutrophils % 6 % (0-2) H 08/22/18 07:16 Lymphocytes % (Manual) 5 % (20-40) L 08/22/18 07:16 Reactive Lymphs % 2 % (0-0) H 08/22/18 07:16 Monocytes % (Manual) 6 % (0-10) 08/22/18 07:16 Eosinophils % (Manual) 2 % (0-4) 08/19/18 06:32 Basophils % (Manual) 1 % (0-2) 08/20/18 05:47 Myelocytes % 1 % (0-0) H 08/22/18 07:16 Toxic Granulation Present 08/19/18 06:32 Platelet Estimate Normal (NORMAL) 08/22/18 07:16 RBC Morphology Normal 08/22/18 07:16 Hypochromasia (manual) Slight 08/20/18 05:47 Poikilocytosis (manual Slight 08/20/18 05:47 Anisocytosis (manual) Slight 08/20/18 05:47 Target Cells Slight 08/19/18 06:32 Ovalocytes Slight 08/20/18 05:47 PT 10.2 SECONDS (9.7-12.2) 08/17/18 07:39 INR 0.9 08/17/18 07:39 APTT 30 SECONDS (21-34) 08/17/18 07:39 Puncture Site Rr 08/17/18 12:02 pCO2 27 mm/Hg (35-45) L 08/17/18 12:02 pO2 400 mm/Hg (80-100) H 08/17/18 12:02 HCO3 21.6 mmol/L (21-28) 08/17/18 12:02 ABG pH 7.44 (7.35-7.45) 08/17/18 12:02 ABG Total CO2 19.1 mmol/L (22-28) L 08/17/18 12:02 ABG O2 Saturation 98.4 % (95-98) H 08/17/18 12:02 ABG Base Excess -4.4 mmol/L (-2.0-3.0) L 08/17/18 12:02 Ismael Test Pos 08/17/18 12:02 ABG Potassium 3.2 mmol/L (3.6-5.2) L 08/17/18 12:02 A-a O2 Difference 279.0 mm/Hg 08/17/18 12:02 Respiratory Index 0.7 08/17/18 12:02 Sodium 134.0 mmol/l (132-148) 08/17/18 12:02 Chloride 105.0 mmol/L (98-107) 08/17/18 12:02 Glucose 210 mg/dl (75-110) H 08/17/18 12:02 Lactate 1.4 mmol/L (0.7-2.1) 08/17/18 12:02 FiO2 100.0 % 08/17/18 12:02 Inspiratory BiPAP 12 08/17/18 12:02 Expiratory BiPAP 6 08/17/18 12:02 Sodium 140 mmol/L (132-148) 08/23/18 07:19 Potassium 4.5 mmol/L (3.6-5.2) 08/23/18 07:19 Chloride 107 mmol/L (98-107) 08/23/18 07:19 Carbon Dioxide 27 mmol/L (22-30) 08/23/18 07:19 Anion Gap 11 (10-20) 08/23/18 07:19 BUN 38 mg/dL (9-20) H 08/23/18 07:19 Creatinine 2.5 mg/dL (0.8-1.5) H 08/23/18 07:19 Est GFR ( Amer) 30 08/23/18 07:19 Est GFR (Non-Af Amer) 25 08/23/18 07:19 Random Glucose 146 mg/dL (75-110) H 08/23/18 07:19 Calcium 8.3 mg/dl (8.6-10.4) L 08/23/18 07:19 Phosphorus 3.3 mg/dL (2.5-4.5) 08/20/18 05:47 Magnesium 1.9 mg/dL (1.6-2.3) 08/20/18 05:47 Total Bilirubin 0.9 mg/dL (0.2-1.3) 08/20/18 05:47 AST 48 U/L (17-59) 08/20/18 05:47 ALT 43 U/L (21-72) 08/20/18 05:47 Alkaline Phosphatase 158 U/L (38-126) H D 08/20/18 05:47 Total Creatine Kinase 808 U/L (55-170) H 08/17/18 22:08 CK-MB (Mass) 3.67 ng/mL (0.0-3.38) H 08/17/18 22:08 Troponin I 0.1040 ng/mL (0.00-0.120) 08/17/18 22:08 NT-Pro-B Natriuret Pep 57132 pg/mL (0-900) H 08/17/18 07:39 Total Protein 6.5 g/dL (6.3-8.3) 08/20/18 05:47 Albumin 3.3 g/dL (3.5-5.0) L 08/20/18 05:47 Globulin 3.2 gm/dL (2.2-3.9) 08/20/18 05:47 Albumin/Globulin Ratio 1.0 (1.0-2.1) 08/20/18 05:47 Procalcitonin 114.00 NG/ML (0.19-0.49) H 08/17/18 08:18 Arterial Blood Potassium 3.2 mmol/L (3.6-5.2) L 08/17/18 12:02 Urine Color Yellow (YELLOW) 08/23/18 14:41 Urine Clarity Clear (Clear) 08/23/18 14:41 Urine pH 6.0 (5.0-8.0) 08/23/18 14:41 Ur Specific [place] 1.012 (1.003-1.030) 08/23/18 14:41 Urine Protein 1+ mg/dL (NEGATIVE) H 08/23/18 14:41 Urine Glucose (UA) 1+ mg/dL (Normal) H 08/23/18 14:41 Urine Ketones Negative mg/dL (NEGATIVE) 08/23/18 14:41 Urine Blood 1+ (NEGATIVE) H 08/23/18 14:41 Urine Nitrate Negative (NEGATIVE) 08/23/18 14:41 Urine Bilirubin Negative (NEGATIVE) 08/23/18 14:41 Urine Urobilinogen Normal mg/dL (0.2-1.0) 08/23/18 14:41 Ur Leukocyte Esterase 3+ [place]/uL (Negative) H 08/23/18 14:41 Urine WBC (Auto) 30 /hpf (0-5) H 08/23/18 14:41 Urine RBC (Auto) 10 /hpf (0-3) H 08/23/18 14:41 Urine WBC Clumps (Auto) Many /hpf (NONE) H 08/17/18 08:50 Ur Squamous Epith Cells < 1 /hpf (0-5) 08/23/18 14:41 Urine Bacteria Rare (<OCC) 08/23/18 14:41 Influenza Typ A,B (EIA) Negative for flu a/b (NEGATIVE) 08/17/18 07:26 Discharge Exam - Head Exam Head Exam: NORMAL INSPECTION (80) Discharge Plan - Discharge Medications Prescriptions: Amoxicillin/Potassium Clav [Augmentin 500 mg-125 mg] 1 tab PO BID #20 tab Saccharomyces Boulardi [Florastor] 250 mg PO BID #20 cap - Follow Up Plan Condition: GUARDED Disposition: HOME/ ROUTINE Instructions: How to Care for Your Lopez Catheter, Male, Lopez Catheter, Male, Chronic Kidney Disease (DC), Urinary Retention (DC) Additional Instructions: please teach how to use leg bag, and lopez care/ discharge with lopez augmentin 500mg po bid [id number] as per DR Maryanne marshall 1 tab po bid follow up with PMD in 1 week Referrals: Eren Mancuso MD [Staff Provider] - Dominic Madden MD [Staff Provider] - Ryan Lewis MD [Staff Provider] -
--- NOTE | 2018-08-24 21:37 | DS ---
DISCHARGE DIAGNOSES: 1. Prostate cancer with obstructive uropathy. 2. Congestive heart failure. 3. Chronic kidney disease, not on hemodialysis. 4. Hypertension. 5. Hyperlipidemia. HISTORY OF PRESENT ILLNESS: This is a 77-year-old [place] male with history of prostate cancer, chemotherapy status post radiation therapy, he is compliant with medication and followup. The patient was alright until a few days prior to admission he started having weakness, tiredness, anorexia, malaise, and fatigue. The patient was admitted to the floor and he had a Jasso catheter in place. The patient started putting out urine; initially hemorrhagic then cleared up. The patient has obstruction from prostate cancer. The patient's BUN and creatinine went down. He has underlying CKD with baseline creatinine around 2. The patient improved. He has been discharged with outpatient followup. CONDITION UPON DISCHARGE: Stable. PHYSICAL EXAMINATION: VITAL SIGNS: Blood pressure 138/69, pulse 79, respiratory rate 20, temperature 97.7. LABORATORY DATA: WBC 9.6, hemoglobin 10.5, hematocrit 31.2, platelets 244. Sodium 140, potassium 4.5, chloride 107, bicarb 24, BUN 38, creatinine 2.5. ASSESSMENT AND PLAN: The patient is stable upon discharge. The patient will be followed up as outpatient. Wily Liao MD
== END 2018-08-23 13:10 | disposition home or self-care (01) | DRG 871 ==
LOC: C.ER 06:52 → C.9E 08:31 → C.9I 15:25 → C.6T 08-20 17:42
PROVIDERS: ADMIT Internal Medicine; ATTEND Internal Medicine
PROC: 5A09457 Assistance with Respiratory Ventilation, 24-96 Consecutive Hours, Continuous Positive Airway Pressure (ICD-10-PCS; principal; 2018-08-17)
DX: A41.51 Sepsis due to Escherichia coli [E. coli] (principal); J96.00 Acute respiratory failure, unspecified whether with hypoxia or hypercapnia; N39.0 Urinary tract infection, site not specified; N17.9 Acute kidney failure, unspecified; I50.22 Chronic systolic (congestive) heart failure; I13.0 Hypertensive heart and chronic kidney disease with heart failure and stage 1 through stage 4 chronic kidney disease, or unspecified chronic kidney disease; R65.20 Severe sepsis without septic shock; C61 Malignant neoplasm of prostate; D63.8 Anemia in other chronic diseases classified elsewhere; E11.22 Type 2 diabetes mellitus with diabetic chronic kidney disease; E78.00 Pure hypercholesterolemia, unspecified; E86.0 Dehydration; N13.9 Obstructive and reflux uropathy, unspecified; N18.9 Chronic kidney disease, unspecified; E78.5 Hyperlipidemia, unspecified; F41.9 Anxiety disorder, unspecified; I45.4 Nonspecific intraventricular block; N40.0 Benign prostatic hyperplasia without lower urinary tract symptoms; Z87.891 Personal history of nicotine dependence; Z92.3 Personal history of irradiation

== ENCOUNTER 2018-08-28 11:21 | Inpatient (IN) | payer OTHER ==
[2018-08-28 11:31] VITALS: BMI 20.7
--- NOTE | 2018-08-28 12:07 | C.PDOC ---
History Of Present Illness 77 y/o male, with history of prostate cancer and CKD, comes in to ED complaining of abdominal pain and back pain since yesterday. Patient states his catheter was removed yesterday but cant urinate on his own after. Patient denies fever, chills, chest pain, SOB, or other symptoms. Time Seen by Provider: 08/28/18 11:42 Chief Complaint (Nursing): Male Genitourinary History Per: Patient History/Exam Limitations: no limitations Onset/Duration Of Symptoms: Days Current Symptoms Are (Timing): Still Present Past Medical History Reviewed: Historical Data, Nursing Documentation, Vital Signs Vital Signs: Last Vital Signs Temp 97.0 F L 08/28/18 11:28 Pulse 98 H 08/28/18 11:28 Resp 20 08/28/18 11:28 BP 146/72 08/28/18 11:28 Pulse Ox 100 08/28/18 11:28 - Medical History PMH: Arthritis, Cardia Arrhythmia, HTN, Hypercholesterolemia, Chronic Kidney Disease (left kidney 50 percent functioning only per pt) - [facility] Procedures ASSISTANCE WITH RESPIRATORY VENTILATION, 24-96 HRS, CPAP (08/17/18) Family History: States: No Known Family Hx - Social History Hx Alcohol Use: Yes Hx Substance Use: No - Immunization History Hx Tetanus Toxoid Vaccination: No Hx Influenza Vaccination: Yes (2016) Hx Pneumococcal Vaccination: Yes (2016) Review Of Systems Except As Marked, All Systems Reviewed And Found Negative. Constitutional: Negative for: Fever, Chills Cardiovascular: Negative for: Chest Pain Respiratory: Negative for: Cough, Shortness of Breath Gastrointestinal: Positive for: Abdominal Pain. Negative for: Vomiting, Diarrhea Musculoskeletal: Positive for: Back Pain Skin: Negative for: Rash Physical Exam - Physical Exam Appears: Non-toxic, No Acute Distress Skin: Warm, Dry Head: Atraumatic, Normacephalic Eye(s): bilateral: Normal Inspection Oral Mucosa: Moist Neck: Supple Cardiovascular: Rhythm Regular, No Murmur Respiratory: Normal Breath Sounds, No Rales, No Rhonchi, No Wheezing Gastrointestinal/Abdominal: Bowel Sounds (Increased), Soft, Distention Extremity: Bilateral: Atraumatic, Normal Color And Temperature, Normal ROM Neurological/Psych: Oriented x3, Normal Speech ED Course And Treatment - Laboratory Results Result Diagrams: 08/28/18 12:10 08/28/18 12:10 O2 Sat by Pulse Oximetry: 100 (RA) Pulse Ox Interpretation: Normal Medical Decision Making Medical Decision Making: Plan: --Bloodwork --Jasso catheter inserted --UA, urine culture Progress/Updates: Labs reviewed. Catheter inserted, >1300 cc drained. 13:[address] Liao, who accepts patient for admission for acute urinary retention and multi-drug resistant UTI. Disposition Counseled Patient/Family Regarding: Studies Performed, Diagnosis - Disposition Disposition: HOSPITALIZED Disposition Time: 13:09 Condition: STABLE - Clinical Impression Clinical Impression: UTI (urinary tract infection), Urinary retention, CKD (chronic kidney disease), Failure of outpatient treatment - Scribe Statement The provider has reviewed the documentation as recorded by the Geovani Almazan Provider Attestation: All medical record entries made by the Neenaibmp were at my direction and personally dictated by me. I have reviewed the chart and agree that the record accurately reflects my personal performance of the history, physical exam, medical decision making, and the department course for this patient. I have also personally directed, reviewed, and agree with the discharge instructions and dis position.
[2018-08-28 12:18] LABS: BASO % 0.3 % (0.0-2.0); HEMOGLOBIN 10.7 g/dL (12.0-18.0); LYMPH # 0.6 K/uL (1.0-4.3); LYMPH % 4.8 % (20.0-40.0); MEAN CELL VOLUME 95.1 fL (80.0-94.0); MEAN CORPUSCULAR HEMOGLOBIN 30.1 pg (27.0-31.0); MEAN CORPUSCULAR HGB CONC 31.6 g/dL (33.0-37.0); MEAN PLATELET VOLUME 7.2 fL (7.2-11.7); MONO # 0.7 K/uL (0.0-0.8); NEUT # 12.1 K/uL (1.8-7.0); NEUT % 89.9 % (50.0-75.0); RBC 3.55 Mil/uL (4.40-5.90); RED CELL DISTRIBUTION WIDTH 14.7 % (11.5-14.5); WHITE BLOOD COUNT 13.5 K/uL (4.8-10.8)
[2018-08-28 12:19] LABS: PLATELET COUNT 467 K/uL (130-400)
[2018-08-28 12:37] LABS: URINE BACTERIA OCC (<OCC); URINE BILIRUBIN NEGATIVE (NEGATIVE); URINE BLOOD 2+ (NEGATIVE); URINE CLARITY Hazy (Clear); URINE COLOR Yellow (YELLOW); URINE GLUCOSE (UA) NORMAL (Normal); URINE LEUKOCYTE ESTERASE 3+ Leu/uL (Negative); URINE PROTEIN NEGATIVE (NEGATIVE); URINE UROBILINOGEN NORMAL mg/dL (0.2-1.0)
[2018-08-28 14:06] LABS: EOSINOPHIL 2 % (0-4); LYMPHOCYTE 2 % (20-40); MONOCYTE 3 % (0-10); NEUTROPHIL 93 % (50-75); PLATELET ESTIMATE SLIGHTLY INCREASED (NORMAL); TOTAL CELLS COUNTED 100
[2018-08-28 14:51] VITALS: RESP 20
[2018-08-28] MEDS ORDERED: Piperacillin/Tazobact 2.25 GM in Sodium Chloride 100 ML IVPB SCH (20:00)
[2018-08-28] MEDS: Piperacill/Tazo 2.25gm in Dex 2.25 GM/50 ML BAG IVPB SCH (21:40)
[2018-08-29] MEDS: Piperacill/Tazo 2.25gm in Dex 2.25 GM/50 ML BAG IVPB SCH ×2 (03:55→09:59)
[2018-08-29 07:39] VITALS: BP 131/69; PULSE 76; TEMP 98.5; O2SAT 96
[2018-08-29] MEDS ORDERED: Saccharomyces Boulardi 250 mg Cap PO SCH (10:00)
[2018-08-29] MEDS ORDERED: diltiaZEM 180 mg/24 Hours CD Cap PO SCH (10:00)
--- NOTE | 2018-08-29 12:43 | PCM.URO ---
Urology Progress Note - Subjective Hematuria: Yes (pt for discharge home // full note is dictated) - Objective Lab Results Last 24 Hours: Laboratory Results - last 24 hr 08/28/18 12:10 Neutrophils % (Manual) 93 H Lymphocytes % (Manual) 2 L Monocytes % (Manual) 3 Eosinophils % (Manual) 2 Platelet Estimate Slightly increased H RBC Morphology Normal Intake & Output: Intake & Output 08/28/18 08/29/18 08/29/18 18:59 06:59 18:59 Intake Total 350 Output Total 1300 1350 Balance -1300 -1000 Weight 125 lb Intake: Intake, IV Amount 100 Left Antecubital 100 Oral 250 Output: Urine 1300 1350 Urethral (Jasso) 1350 Other: # Bowel Movements 0 Vital Signs: Vital Signs - 24 hr 08/28/18 08/28/18 08/28/18 13:28 14:28 14:50 Temperature 98 F 98.2 F Pulse Rate 87 95 H Respiratory 18 20 Rate Blood Pressure 138/74 154/68 H O2 Sat by Pulse 100 99 94 L Oximetry 08/28/18 08/28/18 08/29/18 15:31 23:50 07:38 Temperature 99 F 97.9 F 98.5 F Pulse Rate 85 80 76 Respiratory 20 20 20 Rate Blood Pressure 132/62 106/60 131/69 O2 Sat by Pulse 95 97 96 Oximetry
--- NOTE | 2018-08-29 23:09 | CP.PCM.HP ---
Present on Admission - Present on Admission Any Indicators Present on Admission: No Past Patient History - Past Medical History & Family History Past Medical History?: Yes - Past Social History Smoking Status: Never Smoked - CARDIAC Hx Cardia Arrhythmia: Yes Hx Hypercholesterolemia: Yes Hx Hypertension: Yes - NEUROLOGICAL Hx Neurological Disorder: Yes (SEE COMMENT) Other/Comment: NEUROPATHY - HEENT Hx HEENT Problems: Yes (seasonal allergies) - RENAL Hx Chronic Kidney Disease: Yes (left kidney 50 percent functioning only per pt) - ENDOCRINE/METABOLIC Hx Endocrine Disorders: Yes Hx Diabetes Mellitus Type 2: Yes - HEMATOLOGICAL/ONCOLOGICAL Hx Cancer: Yes (prostate CA) - MUSCULOSKELETAL/RHEUMATOLOGICAL Hx Arthritis: Yes Hx Falls: No - GASTROINTESTINAL Hx Gastrointestinal Disorders: Yes (constipation) - GENITOURINARY/GYNECOLOGICAL Hx Genitourinary Disorders: Yes Hx Prostate Cancer: Yes Hx Prostate Problems: Yes - PSYCHIATRIC Hx Substance Use: No - SURGICAL HISTORY Hx Surgeries: No - ANESTHESIA Hx Anesthesia: No Meds Allergies/Adverse Reactions: Allergies Allergy/AdvReac Type Severity Reaction Status Date / Time aspirin Allergy RASH Verified 08/28/18 11:30 Results - Vital Signs Recent Vital Signs: Last Vital Signs Temp 98.5 F 08/29/18 07:38 Pulse 76 08/29/18 07:38 Resp 20 08/29/18 07:38 BP 131/69 08/29/18 07:38 Pulse Ox 96 08/29/18 07:38 - Labs Result Diagrams: 08/28/18 12:10 08/28/18 12:10
--- NOTE | 2018-08-31 03:28 | HP ---
CHIEF COMPLAINT: Abdominal and lower back pain x1 day. HISTORY OF PRESENT ILLNESS: This is a 77-year-old Romanian male who is well known to me with history of obstructive uropathy, hypertension; and he is complaint with his diet, medication, and followup. The patient has prostatic cancer, and patient was recently admitted at [facility] with hematuria, obstructive uropathy, underwent a Jasso catheter placement, and the patient went home. The patient came back again with abdominal pain, back pain, and physical exam and checkup is benign. The patient denies any fevers, chills. He denies any nausea, vomiting, diarrhea. He denies any polyuria, polydipsia, polyphagia. He denies any hematuria. However, at times, he did have blood tinged urine. No history of joint pain, hip pain. He has tingling and numbness. ALLERGIES: HE IS ALLERGIES TO ASPIRIN. CURRENT MEDICATIONS: At home, he is on Norvasc, Flomax, Florastor, Cardura, gabapentin, Diltiazem, Catapres, Lipitor, Augmentin. SOCIAL HISTORY: Nonsmoker, non-ETOH user. PAST MEDICAL HISTORY: Prostatic cancer, hypertension, hyperlipidemia, obstructive uropathy. PHYSICAL EXAMINATION: GENERAL: An elderly male, in no acute distress. VITAL SIGNS: Blood pressure 131/69, pulse 76, respiratory rate 20, temperature 98.5. SKIN: Senile turgor. No bruises. No purpura. No petechiae. No ecchymosis. HEENT: Atraumatic, normocephalic. Positive pallor. Negative jaundice. Extraocular movements are intact. NECK: Supple. No JVD. No lymph node. No thyromegaly. No carotid bruits. CHEST WALL: Bilateral symmetrical expansion. No tenderness. LUNGS: Bilaterally clear. No rales. No rhonchi. CARDIOVASCULAR SYSTEM: PMI in fifth intercostal space. S1, S2 regular. No heave. No thrill. ABDOMEN: Soft, nontender. Bowel sounds are positive. GENITOURINARY: The patient has a Jasso catheter with slightly blood tinged urine. Rectal enlarged. Prostate with ____ infection. EXTREMITIES: No clubbing, cyanosis, or edema. CENTRAL NERVOUS SYSTEM: Awake, alert, and oriented x3. ASSESSMENT: 1. Obstructive uropathy due to prostate cancer with some hematuria which is part of his disease process, however, his blood urea nitrogen and creatinine is stable. 2. Hypertension. 3. Hyperlipidemia. PLAN: Admit. Detailed orders are written. The patient has been evaluated by Urology and here for discharge. Wily Liao MD
== END 2018-08-29 13:01 | disposition home or self-care (01) | DRG 723 ==
LOC: C.ER 11:21 → C.9E 13:14 → C.5S 14:18
PROVIDERS: ADMIT Internal Medicine; ATTEND Internal Medicine
DX: C61 Malignant neoplasm of prostate (principal); N39.0 Urinary tract infection, site not specified; N13.8 Other obstructive and reflux uropathy; E11.22 Type 2 diabetes mellitus with diabetic chronic kidney disease; E78.00 Pure hypercholesterolemia, unspecified; I12.9 Hypertensive chronic kidney disease with stage 1 through stage 4 chronic kidney disease, or unspecified chronic kidney disease; N18.9 Chronic kidney disease, unspecified; N13.9 Obstructive and reflux uropathy, unspecified; R31.0 Gross hematuria; R33.8 Other retention of urine